=== PATIENT | female | born 1955 | race Caucasian/White ===

== ENCOUNTER → 2017-04-29 | Outpatient (CLI) | payer OTHER | LOC: CIMAGING 15:38 | PROVIDERS: ATTEND Physician Assistant | DX: M54.5 Low back pain (principal); M25.551 Pain in right hip; G89.29 Other chronic pain; M16.12 Unilateral primary osteoarthritis, left hip; M41.9 Scoliosis, unspecified; Z87.81 Personal history of (healed) traumatic fracture; Z96.9 Presence of functional implant, unspecified | CPT/HCPCS: 72100-PO; 72190-PO ==

== ENCOUNTER → 2017-05-16 | Outpatient (CLI) | payer OTHER | LOC: CIMAGING 14:39 | PROVIDERS: ATTEND Internal Medicine | DX: M24.852 Other specific joint derangements of left hip, not elsewhere classified (principal); M85.862 Other specified disorders of bone density and structure, left lower leg | CPT/HCPCS: 72190-PO ==

== ENCOUNTER 2017-05-17 15:50 | Inpatient (IN) | payer OTHER ==
[2017-05-17] MEDS ORDERED: ACETAMINOPHEN 325 MG TAB PO PRN (18:12)
[2017-05-17] MEDS ORDERED: LORazepam 0.5 MG TAB PO PRN (18:12)
[2017-05-17] MEDS ORDERED: HYDROmorphone HCL/NS 0.5 MG/ML SYR IVP PRN (18:12)
[2017-05-17] MEDS ORDERED: ONDANSETRON DISINTEGRATING 4 MG TAB PO PRN (18:12)
[2017-05-17] MEDS ORDERED: oxyCODONE IR 5 MG TAB PO PRN (18:12)
[2017-05-17] MEDS ORDERED: ONDANSETRON 4 MG/2 ML VIAL IVP PRN (18:12)
[2017-05-17] MEDS ORDERED: PROMETHAZINE HCL 25 MG/ML INJ IVP PRN (18:12)
[2017-05-17 20:11] LABS: PLATELET COUNT 206 10^3/uL (150-400)
[2017-05-17] MEDS ORDERED: DIAZEPAM 5 MG TAB PO PRN (21:08)
[2017-05-17] MEDS ORDERED: BACLOFEN 10 MG TAB PO PRN (21:09)
[2017-05-17] MEDS ORDERED: ALPRAZolam 0.25 MG TAB PO PRN (21:09)
[2017-05-17] MEDS: clonazePAM 1 MG TAB PO SCH (22:00)
[2017-05-17] MEDS: GABAPENTIN 300 MG CAP PO SCH (22:00)
[2017-05-18] MEDS: DULoxetine 60 MG CAP PO SCH (07:45)
[2017-05-18] MEDS: PANTOPRAZOLE SODIUM 40 MG TAB PO SCH (07:46)
[2017-05-18] MEDS: GABAPENTIN 300 MG CAP PO SCH ×3 (07:46→21:25)
[2017-05-18] MEDS: CITALOPRAM 20 MG TAB PO SCH (07:47)
[2017-05-18] MEDS: clonazePAM 1 MG TAB PO SCH ×3 (07:47→21:25)
[2017-05-18] MEDS: ENOXAPARIN 40 MG/0.4 ML SYR SC SCH (07:47)
[2017-05-18] MEDS: POLYETHYLENE GLYCOL 3350 17 GM PKT PO SCH (07:51)
[2017-05-18] MEDS: cycloSPORINE 0.05% 30 DROPERETTE/BOX EACHEYE SCH ×2 (07:54→21:26)
[2017-05-18] MEDS: FLUTICASONE NASAL 120 SPRAYS/16 GM MDI EACHNARE SCH ×2 (07:54→21:26)
[2017-05-18] MEDS: DIFLUPREDNATE LEFTEYE SCH ×2 (09:52→21:27)
--- NOTE | 2017-05-18 15:00 | GHP ---
[f rep st] HISTORY AND PHYSICAL DATE OF ADMISSION: 05/17/2017 CHIEF COMPLAINT: Pelvic pain. HISTORY: This is a 61-year-old female with a past medical history of chronic pain, as well as freque nt falls, for which she is followed by Dr. Verma, who presents as a direct admit from Dr. Verma 's office with [id number] pain and difficulty with mobility. The patient describes having an e pisode 2 days prior to admission during which time she was extremely exhausted from lack of sleep and also overexertion and states that she rested her head in her hands against the wall and believes antonio t she, during that time, must have fallen asleep and then fallen down, waking up on her bottom with s ignificant pain in her pelvis. She has been evaluated by Dr. Verma and has undergone x-rays, reve aling that there is no acute fracture. However, the pain remains severe, and she is unable to sit co mfortably or ambulate safely. She notes that she always has chronic underlying pain, including facia l pain and total body pain, which has been exacerbated by the pelvic pain. She notes some pain seems to radiate down her legs, although she states that that has only been happening for the last several minutes after moving into the hospital bed. She does have a chronic indwelling intrathecal Dilaudid pump that she has been using to control her pain, as well as a heating pad. She otherwise denies an y changes in her usual state of health. PAST MEDICAL HISTORY: 1. Chronic pain syndrome with continuous narcotic use and dependency. 2. 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 3. Fibromyalgia. 4. Reported osteoporosis. 5. Scoliosis with severe muscle spasm. 6. Depression and anxiety. 7. Frequent falls. PAST SURGICAL HISTORY: 1. Sinus surgeries as per prior. 2. Eye surgery. 3. Spine surgery. MEDICATIONS: 1. Omeprazole. 2. Fluticasone. 3. Durezol. 4. Cyclosporin eyedrops. 5. MiraLAX. 6. Oxycodone. 7. Boniva. 8. Gabapentin. 9. Fluoxetine. 10. Clonazepam. 11. Citalopram. 12. Baclofen. 13. Xanax. 14. Intrathecal Dilaudid pump. ALLERGIES: Multiple, please see EMR. REVIEW OF SYSTEMS: 10-point review of systems obtained and negative except as per HPI. PHYSICAL EXAMINATION: VITAL SIGNS: BP 125/59, heart rate 59, respiratory rate 16, O2 sats 95% on ro om air, temperature is 36.6. GENERAL APPEARANCE: This is a chronically ill-appearing female. She i s awake and alert, in no acute distress. EYES: Anicteric. HENT: Oropharynx clear. CARDIOVASCULAR : Bradycardic, regular, no MRG. PULMONARY: CTA bilaterally to anterior exam. ABDOMEN: Soft, nont dalton, nondistended. EXTREMITIES: No clubbing, cyanosis, or edema. SKIN: Warm, dry, well perfused . NEURO/PSYCH: The patient is oriented and appropriate. CLINICAL DATA: Pelvic x-ray from yesterday, personally reviewed and interpreted, shows no acute frac ture. There are severe degenerative changes left hip. Labs reviewed, significant for white blood cell count of 4.1, hematocrit of 33.3, which is stable. C hemistries unremarkable. Urinalysis was negative. ASSESSMENT AND PLAN: This is a 61-year-old female with chronic pain, continuous narcotic use and dep endence, who presents status post fall with worsening of her chronic pain. 1. Yentz-tf-rfzmslh pain. Again, the patient had a recent fall where she landed on her tailbone, an d this has led to a pain exacerbation. She does have a significant amount of pain over her tailbone region, though there does not appear to be an acute fracture there. No real red flag signs, although she did note about one minute of radicular-type pain. At this point, plan will be for pain manageme nt. PT, OT to evaluate. Should her pain remain severe or fail to improve as expected, would conside r further imaging with MRI, though at this point this seems necessary. 2. Chronic pain with continuous narcotic use and dependency. Again, she does have an intrathecal pa in Dilaudid pump, which will be continued. This certainly makes her pain control more difficult. In discussion with Dr. Verma, she has been very compliant with her pain regimen and does not have hi story of abusing her pain contract. 3. Anemia. This is mild and stable. No history to suggest acute bleed. 4. Hypoxia. The patient has had intermittent drops in her O2 into the mid to high 80s. She does hicks ve known nocturnal hypoxia, which is untreated. The patient states she cannot tolerate oxygen due to her prior sinus surgeries. At this time, will just monitor, and unless there is a sustained period of hypoxia, will not intervene. 5. Observation status. Suspect the patient will require less than 48-hour stay for evaluation and m anagement of above. 6. The patient is new to my care. Old records reviewed, summarized as per History of Present Illnes s and Past Medical History. Care plan reviewed with Dr. Verma, including plan for treatment of he r pain exacerbation. The patient may require more prolonged hospitalization and even transition to s [facility] nursing facility, though this remains to be seen at this point. /[id number]/MODL
--- NOTE | 2017-05-18 15:07 | HOSPPROG ---
Hospitalist Progress Note Assessment/Plan: #Acute Left hip and sacral pain - hip xray (personally reviewed and interpreted ) severe degenerative changes of the left hip no acute fractures pt reports pain control improved overnight - continue to titrate meds for comfort # Severe chronic LBP - pt s/p pain pump in late - managed by Dr. Verma in oupt setting - will place inpt rehab consult # acute hypoxic respiratory failure- presumed secondary to respiratory depression with extensive pain medications- creatinine normal - wean medications as able - encourage up to chair and incentive spirometry # depression- patient expresses clear depression related to her disability- being treated by Luci in outpatient setting # prophylaxis Lovenox # diet regular # disposition> 2MN as requires IV pain medications ongoing titration for improved control of pain crisis Discussed the case with the RN- we are concerned about the patient's somnolence will work to titrate benzodiazepines and several scheduled medications. Patient 's respiratory mechanics Subjective: Very depressed Objective: Vital Signs Temp Pulse Resp BP Pulse Ox 36.4 C 53 L 16 98/51 L 92 05/18/17 12:00 05/18/17 12:00 05/18/17 12:00 05/18/17 12:00 05/18/17 12:00 Laboratory Results 05/17/17 19:58 05/17/17 19:58 05/17/17 05/18/17 05/19/17 05:59 05:59 05:59 Intake Total 600 Output Total 1600 400 Balance -1600 200 - Physical Exam Constitutional: chronically ill appearing Eyes: anicteric sclera Ears, Nose, Mouth, Throat: dry mucous membranes Cardiovascular: regular rate and rhythym Respiratory: no respiratory distress Gastrointestinal: normoactive bowel sounds Genitourinary: no bladder fullness Skin: warm Musculoskeletal: No asymmetric calves Neurologic: AAOx3 Psychiatric: depressed, flat affect Lymph, Heme, Immunologic: no cervical LAD ICD10 Worksheet Patient Problems: Problems Problem Status Onset Hip arthritis Acute - ICD10 Problem Qualifiers (1) Hip arthritis
[2017-05-18] MEDS ORDERED: oxyCODONE IR 5 MG TAB PO PRN (15:11)
--- NOTE | 2017-05-18 15:34 | PDMN ---
Medical Necessity Medical necessity: C/M review: est. > 2 MN LOS for eval and TX of acute and persistent - left hip and sacral pain, hip xray shows severe degenerative changed of the left hip no acute fractures, hypoxic respiratory failure requiring planned inpatient Rebab eval consult, ongoing IV Ketrolac, IV pain medications, titration for improved of pain crisis, pulse oximetry, acute inpt PT/OT, comorbid severe chronic low back pain, S/P pain pump placement in late 1979', depression per 05/18/2017 Hospitalist progress note.
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
[2017-05-18] MEDS: LIDOCAINE 4%/MENTHOL 1% PATCH TD SCH (18:30)
[2017-05-18] MEDS: KETOROLAC 15 MG/1 ML SDV IVP SCH ×2 (18:32→23:15)
[2017-05-19] MEDS: PATCH REMOVAL 1 EA PATCH TD SCH ×2 (03:21→21:15)
[2017-05-19] MEDS: KETOROLAC 15 MG/1 ML SDV IVP SCH ×3 (04:57→18:47)
[2017-05-19] MEDS: ENOXAPARIN 40 MG/0.4 ML SYR SC SCH (08:44)
[2017-05-19] MEDS: LIDOCAINE 4%/MENTHOL 1% PATCH TD SCH (08:44)
[2017-05-19] MEDS: DULoxetine 60 MG CAP PO SCH (08:45)
[2017-05-19] MEDS: PANTOPRAZOLE SODIUM 40 MG TAB PO SCH (08:45)
[2017-05-19] MEDS: GABAPENTIN 300 MG CAP PO SCH ×3 (08:45→21:14)
[2017-05-19] MEDS: clonazePAM 1 MG TAB PO SCH ×3 (08:45→21:13)
[2017-05-19] MEDS: POLYETHYLENE GLYCOL 3350 17 GM PKT PO SCH (08:45)
[2017-05-19] MEDS: CITALOPRAM 20 MG TAB PO SCH (08:45)
[2017-05-19] MEDS: FLUTICASONE NASAL 120 SPRAYS/16 GM MDI EACHNARE SCH ×2 (09:59→21:14)
[2017-05-19] MEDS: cycloSPORINE 0.05% 30 DROPERETTE/BOX EACHEYE SCH ×2 (09:59→21:13)
[2017-05-19] MEDS: DIFLUPREDNATE LEFTEYE SCH ×2 (10:24→21:13)
--- NOTE | 2017-05-19 11:56 | HOSPPROG ---
Hospitalist Progress Note Assessment/Plan: #Acute Left hip and sacral pain - hip xray (personally reviewed and interpreted ) severe degenerative changes of the left hip no acute fractures pt reports pain control improved overnight - continue to titrate meds for comfort -pt/ot # Severe chronic LBP - pt s/p pain pump in late - managed by Dr. Verma in oupt setting - will place inpt rehab consult # acute hypoxic respiratory failure- presumed secondary to respiratory depression with extensive pain medications- WBC 4 Oxygen saturations 90% on room air-they do fluctuate with her level of sedation - wean medications as able - encourage up to chair and incentive spirometry # depression- patient expresses clear depression related to her disability- being treated by Luci in outpatient setting # prophylaxis Lovenox # diet regular # disposition> 2MN as requires IV pain medications ongoing titration for improved control of pain crisis Discussed the case with the RN- we will not hold patient's home medications unless there is significant hypoxia sedation or respiratory depression Subjective: Tearful that 1 dose of her home Klonopin was held Objective: Vital Signs Temp Pulse Resp BP Pulse Ox 36.9 C 51 L 16 115/58 L 91 L 05/19/17 08:00 05/19/17 08:00 05/19/17 08:00 05/19/17 08:00 05/19/17 08:00 Laboratory Results 05/17/17 19:58 05/17/17 19:58 05/18/17 05/19/17 05/20/17 05:59 05:59 05:59 Intake Total 1050 Output Total 1600 1500 850 Balance -1600 -450 -850 - Physical Exam Constitutional: chronically ill appearing Eyes: anicteric sclera Ears, Nose, Mouth, Throat: moist mucous membranes Cardiovascular: regular rate and rhythym Respiratory: no respiratory distress Gastrointestinal: normoactive bowel sounds Genitourinary: no bladder fullness Skin: warm Musculoskeletal: No asymmetric calves Neurologic: AAOx3 Psychiatric: depressed, flat affect Lymph, Heme, Immunologic: no cervical LAD ICD10 Worksheet Patient Problems: Problems Problem Status Onset Hip arthritis Acute - ICD10 Problem Qualifiers (1) Hip arthritis
[2017-05-20] MEDS: KETOROLAC 15 MG/1 ML SDV IVP SCH ×5 (00:01→23:52)
[2017-05-20] MEDS: clonazePAM 1 MG TAB PO SCH ×5 (05:10→20:16)
[2017-05-20] MEDS: GABAPENTIN 300 MG CAP PO SCH ×3 (09:02→21:39)
[2017-05-20] MEDS: DULoxetine 60 MG CAP PO SCH (09:03)
[2017-05-20] MEDS: ENOXAPARIN 40 MG/0.4 ML SYR SC SCH (09:03)
[2017-05-20] MEDS: CITALOPRAM 20 MG TAB PO SCH (09:03)
[2017-05-20] MEDS: PANTOPRAZOLE SODIUM 40 MG TAB PO SCH (09:04)
[2017-05-20] MEDS: POLYETHYLENE GLYCOL 3350 17 GM PKT PO SCH (09:06)
[2017-05-20] MEDS: LIDOCAINE 4%/MENTHOL 1% PATCH TD SCH (09:08)
[2017-05-20] MEDS: cycloSPORINE 0.05% 30 DROPERETTE/BOX EACHEYE SCH ×2 (09:09→20:16)
[2017-05-20] MEDS: FLUTICASONE NASAL 120 SPRAYS/16 GM MDI EACHNARE SCH ×2 (09:10→20:17)
[2017-05-20] MEDS: DIFLUPREDNATE LEFTEYE SCH ×2 (09:14→20:17)
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
[2017-05-20] MEDS: PATCH REMOVAL 1 EA PATCH TD SCH (20:17)
[2017-05-20] MEDS: [UNRECOGNIZED DRUG - OTHER] PO SCH (21:39)
[2017-05-21] MEDS: KETOROLAC 15 MG/1 ML SDV IVP SCH (04:08)
[2017-05-21 07:42] VITALS: BP 129/83; PULSE 57; RESP 18; TEMP 97.9; O2SAT 91
[2017-05-21] MEDS: clonazePAM 1 MG TAB PO SCH (07:53)
[2017-05-21] MEDS: GABAPENTIN 300 MG CAP PO SCH (07:54)
[2017-05-21] MEDS: CITALOPRAM 20 MG TAB PO SCH (07:54)
[2017-05-21] MEDS: DULoxetine 60 MG CAP PO SCH (07:54)
[2017-05-21] MEDS: PANTOPRAZOLE SODIUM 40 MG TAB PO SCH (07:54)
[2017-05-21] MEDS: FLUTICASONE NASAL 120 SPRAYS/16 GM MDI EACHNARE SCH (08:52)
[2017-05-21] MEDS: cycloSPORINE 0.05% 30 DROPERETTE/BOX EACHEYE SCH (08:52)
[2017-05-21] MEDS: ENOXAPARIN 40 MG/0.4 ML SYR SC SCH (08:52)
[2017-05-21] MEDS: LIDOCAINE 4%/MENTHOL 1% PATCH TD SCH (08:53)
--- NOTE | 2017-05-21 09:04 | PDIAF ---
- Diagnosis Diagnosis: chronic pain Code Status: Full Code - Medication Management Discharge Medications: Medications to Continue on Transfer ALPRAZolam [Xanax 1 MG (*)] 0.25 mg PO TID PRN 05/17/17 [Last Taken 04/26/17] Baclofen [Baclofen 10 mg (*)] 0.5 - 1 tab PO TID PRN 05/17/17 [Last Taken ] Citalopram [CeleXA 20 MG] 20 mg PO DAILY 05/17/17 [Last Taken 05/17/17] DULoxetine [Cymbalta 60 MG (*)] 60 mg PO DAILY 05/17/17 [Last Taken 05/17/17] Difluprednate [Durezol] 1 drop LEFTEYE BID 05/17/17 [Last Taken 05/17/17] Fluticasone Nasal [Flonase Nasal [place]olia] 1 sprays NASAL BID 05/17/17 [Last Taken 05/17/17] Gabapentin [Neurontin 300 MG (*)] 600 mg PO TID 05/17/17 [Last Taken 05/17/17] Herbals/Supplements -Info Only 1 ea PO DAILY 05/17/17 [Last Taken Unknown] Ibandronate Sodium [Boniva] 150 mg PO .QMONTH 05/17/17 [Last Taken 04/17/17] Miralax 17 gm (*) 17 gm PO DAILY 05/17/17 [Last Taken 05/17/17] Omeprazole 20 mg PO TID PRN 05/17/17 [Last Taken 05/17/17 12:00] clonazePAM [klonoPIN (*)] 1 mg PO MOTHFR@,,,05/17/17 [Last Taken ] clonazePAM [klonoPIN (*)] 1 mg PO SUTUWESA@,05/17/17 [Last Taken ] cycloSPORINE 0.05% [Restasis Opht Drops(*)] 1 drop EACHEYE BID 05/17/17 [Last Taken 05/17/17 08:00] oxyCODONE IR [Oxycodone Ir (*)] 5 - 10 mg PO BID PRN 05/17/17 [Last Taken ] Ultimate Mary Grace Probiotic 1 cap PO BID 05/20/17 [Last Taken Unknown] Lidocaine 4%/Menthol 1% [Icy Hot Lidocaine/Menthol 4%/1% Patch (*)] 1 patch TD DAILY patch 05/21/17 [Last Taken Unknown] Discharge Medications: Refer to the Discharge Home Medication list for PRN reason. - Orders Services needed: Registered Nurse, Physical Therapy, Occupational Therapy Diet Recommendation: no restrictions on diet Diet Texture: Regular Texture Diet - Follow Up Care Current Providers and Referrals: Sina Verma MD [Primary Care Provider] -
[2017-05-21] MEDS: DIFLUPREDNATE LEFTEYE SCH (09:13)
[2017-05-21] MEDS: POLYETHYLENE GLYCOL 3350 17 GM PKT PO SCH (09:13)
[2017-05-21] MEDS: [UNRECOGNIZED DRUG - OTHER] PO SCH (09:36)
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
--- NOTE | 2017-05-21 14:33 | GDS ---
[f rep st] DISCHARGE SUMMARY DISCHARGE DIAGNOSES: Include: 1. Severe chronic low back pain. 2. Depression. 3. Fibromyalgia. 4. Osteoporosis. 5. Scoliosis. HISTORY OF PRESENT ILLNESS: A 61-year-old female who presents from clinic with pain crisis. For det ails of the patient's initial presentation, please see the history and physical dated 05/17/2017. CONSULTATIVE SERVICES: None. HOSPITAL COURSE BY ISSUE: 1. Worsening of chronic low back pain and acute worsening of left hip pain. Patient was admitted to the hospital and initiated on her outpatient regimen in addition to some p.r.n. pain medications. S he quickly had control of her pain crisis and was transitioned back to her normal home pain regimen. The patient was felt to be unsafe to return home independently, would benefit from rehabilitation [facility]. She was evaluated by [facility] and excepted the day of disposition. She will transition from [facility] to [facility] for ongoing strengthening and care. 2. Depression. Patient does have significant symptoms of depression. This has been longstanding an d treated by her outpatient provider Dr. Verma. We did continue her outpatient regimen and suspec t this will need to be addressed actively in the outpatient setting as she goes through her rehabilit ation. MEDICATIONS AT THE TIME OF TRANSFER: Please reference the med rec printed on 05/21/2017. FOLLOWUP APPOINTMENTS: Include with [facility] with Dr. Verma, her primary care provider, in the next 1-2 months. PENDING STUDIES: At the time of this dictation are none. TIME SPENT: I spent greater than 30 minutes in the planning and coordination of this discharge. /[id number]/MODL
--- NOTE | 2017-05-24 14:07 | PQFORM ---
PHYSICIAN QUERY FORM Needs Your Response This query form is being sent to you to assure this patient record is coded properly. Please respond to the question below: RECORD CLERK QUESTION: Dear Dr. Flores, in reviewing this patient medical record it is noted the patient had the diagnosis of "acute hypoxic respiratory failure." Patient presented with "hypoxia w/ a drop of the O2 in the mid to high 80's." Noted in the Hospitalist progress notes dated 05/18-05/20 patient held the diagnosis of "acute hypoxic respiratory failure, secondary to respiratory depression w/ extensive pain medication." In the 05/18 Medical Necessity note it is noted patient had the diagnosis of "hypoxic respiratory failure requiring planned inpatient rehab evaluation consult." After study, should the diagnosis of "acute hypoxic respiratory failure, present on admit" be included in the Discharge Summary? ___x__ Yes No Unable to determine Other more appropriate diagnosis Thank you CANDY [facility] HIM/Coding Dept. [phone] INSTRUCTIONS FOR RESPONSE: Answer question by clicking on the "Edit Document" button. Move cursor to area below the stars. When complete, hit "Save." Click on the "Sign" button, then click "Sign" again. Type in your PIN and hit "Enter." MTDD
== END 2017-05-21 13:21 | DRG 553 ==
LOC: INTOOBSV 17:28 → F3N 17:28 → EEVIPCON 22:08 → OBSVTOIN 22:08 → F3N 05-19 22:31
PROVIDERS: ADMIT Internal Medicine; ATTEND Internal Medicine
DX: M16.12 Unilateral primary osteoarthritis, left hip (principal); J96.01 Acute respiratory failure with hypoxia; F11.20 Opioid dependence, uncomplicated; G89.29 Other chronic pain; M53.3 Sacrococcygeal disorders, not elsewhere classified; M54.5 Low back pain; F32.9 Major depressive disorder, single episode, unspecified; M10.9 Gout, unspecified; M79.7 Fibromyalgia; M41.9 Scoliosis, unspecified; R29.6 Repeated falls
CPT/HCPCS: 72190-PO; 97110-GP; 97116-GP; 97161-GP; 97166-GO; 97535-GO; G8978-GP-CJ; G8979-GP-CI; G8987-GO-CJ; G8988-GO-CI; J1650; J1885

== ENCOUNTER 2018-02-10 14:08 | Inpatient (IN) | payer OTHER ==
[2018-02-10] MEDS ORDERED: ONDANSETRON 4 MG/2 ML VIAL IVP ONE (15:05)
--- NOTE | 2018-02-10 15:11 | EDPHY ---
H & P Stated Complaint: fell in tub at noon injuring left chest Time Seen by Provider: 02/10/18 14:57 HPI/ROS: CHIEF COMPLAINT: CHIEF COMPLAINT: Left rib pain HISTORY OF PRESENT ILLNESS: 62-year-old female with scoliosis and chronic pain presents with left rib pain. She slipped and fell in the bathtub at noon today. She landed directly on the edge of the bathtub. She complains of moderate to severe left rib pain. The pain increases with movement and with deep inspiration. She also has left 5th toe pain and bruising. She did not hit her head; no headache or neck pain. She usually takes oxycodone for chronic pain, but ran out of oxycodone 2 days ago. REVIEW OF SYSTEMS: complete 10 point ROS negative except as noted in the HPI - Personal History Current Tetanus/Diphtheria Vaccine: Yes Current Tetanus Diphtheria and Acellular Pertussis (TDAP): Yes - Medical/Surgical History Hx Asthma: No Hx Chronic Respiratory Disease: No Hx Diabetes: No Hx Cardiac Disease: No Hx Renal Disease: No Hx Cirrhosis: No Hx Alcoholism: No Hx HIV/AIDS: No Hx Splenectomy or Spleen Trauma: No Other PMH: SINUSITIS, CRANIAL AND FACIAL NERVE DAMAGE, BROKE LEFT SHOULDER, BROKE PELVIS - Social History Smoking Status: Never smoked Alcohol Use: Sober Drug Use: None Additional Social History: Lives with son in own apartment - Physical Exam Exam: General Appearance: Alert, pleasant Head: Atraumatic Eyes: No conjunctival erythema, PERRLA, EOMI ENT, Mouth: no oral trauma, no bony tenderness Neck: Nontender, full range of motion without pain Respiratory: Left chest wall tenderness laterally and posteriorly, lungs clear bilaterally Cardiovascular: Regular rate and rhythm Abdomen: Abdomen is soft, left lower quadrant tenderness Skin: No lacerations, no abrasions Back: Scoliosis, Midline lower thoracic tenderness Extremities: Pelvis is stable and nontender; no extremity tenderness or deformity, range of motion without pain Neurological: A&Ox3, normal motor function, normal sensory exam, cranial nerves intact Psychiatric: Mood and affect normal Constitutional: Initial Vital Signs Temperature (C) 36.7 C 02/10/18 14:20 Heart Rate 78 02/10/18 14:20 Respiratory Rate 20 02/10/18 14:20 Blood Pressure 98/49 L 02/10/18 14:20 O2 Sat (%) 90 L 02/10/18 14:20 O2 Delivery Mode Room Air O2 (L/minute) 4 Allergies/Adverse Reactions: Cephalosporins Allergy (Severe, Verified 01/12/13 15:55) clindamycin Allergy (Severe, Verified 05/17/17 18:29) methadone [Methadone] Allergy (Severe, Verified 01/12/13 15:55) Anaphylaxis ondansetron HCl [From Zofran] Allergy (Intermediate, Verified 01/12/13 15:55) Rash cephalexin monohydrate [From Keflex] Allergy (Verified 01/12/13 15:55) prochlorperazine edisylate [From Compazine] Allergy (Verified 01/12/13 15:55) prochlorperazine maleate [From Compazine] Allergy (Verified 01/12/13 15:55) Sulfa (Sulfonamide Antibiotics) Allergy (Verified 05/17/17 18:19) IMATICON Allergy (Severe, Uncoded 10/04/12 16:24) cephalexin monohydrate Allergy (Unknown, Uncoded 01/06/18 11:40) ondansetron HCl Allergy (Unknown, Uncoded 01/06/18 11:40) Rash prochlorperazine edisylate Allergy (Unknown, Uncoded 01/06/18 11:40) prochlorperazine maleate Allergy (Unknown, Uncoded 01/06/18 11:40) ANTIEMETICS Allergy (Uncoded 10/04/12 16:25) PHENOTHYAZINES Allergy (Uncoded 10/04/12 16:25) THIAZINE Adverse Reaction (Intermediate, Uncoded 10/04/12 16:25) TRICYCLICS Adverse Reaction (Intermediate, Uncoded 10/04/12 16:25) Hives Home Medications: Medication Instructions Recorded ALPRAZolam [Xanax 1 MG (*)] 0.25 mg PO TID PRN 05/17/17 Baclofen [Baclofen 10 mg (*)] 0.5 - 1 tab PO TID PRN 05/17/17 Citalopram [CeleXA 20 MG] 20 mg PO DAILY 05/17/17 DULoxetine [Cymbalta 60 MG (*)] 60 mg PO DAILY 05/17/17 Difluprednate [Durezol] 1 drop LEFTEYE BID 05/17/17 Fluticasone Nasal [Flonase Nasal 1 sprays NASAL BID 05/17/17 [place]] Gabapentin [Neurontin 300 MG (*)] 600 mg PO TID 05/17/17 Herbals/Supplements -Info Only 1 ea PO DAILY 05/17/17 Ibandronate Sodium [Boniva] 150 mg PO .QMONTH 05/17/17 Miralax 17 gm (*) 17 gm PO DAILY 05/17/17 Omeprazole 20 mg PO TID PRN 05/17/17 clonazePAM [klonoPIN (*)] 1 mg PO MOTHFR@06,,,05/17/17 clonazePAM [klonoPIN (*)] 1 mg PO SUTUWESA@08,,05/17/17 cycloSPORINE 0.05% [Restasis Opht 1 drop EACHEYE BID 05/17/17 Drops(*)] oxyCODONE IR [Oxycodone Ir (*)] 5 - 10 mg PO BID PRN 05/17/17 Ultimate Mary Grace Probiotic 1 cap PO BID 05/20/17 Lidocaine 4%/Menthol 1% [[place] 1 patch TD DAILY patch 05/21/17 Lidocaine/Menthol 4%/1% Patch (*)] Medical Decision Making - Diagnostics Imaging Results: Imaging Impressions Abdomen CT 02/10/18 15:06 Impression: 1. Nothing acute in the abdomen and pelvis. 2. Left-sided rib fractures, with pleural effusion. 3. Significant constipation. Findings and recommendations discussed with Becky Villa M.D., at 16:46 hours, on February 10, 2018. Final report concurs with initial preliminary interpretation. E:amm Chest CT 02/10/18 15:06 Impression: 1. Left-sided rib fracture, some of them moderately displaced, with moderate left pleural effusion. 2. Severe scoliosis, with subsequent decreased left lung volume. Findings and recommendations discussed with Dr. Becky Villa at 4:46 PM, 02/10. Final report concurs with initial preliminary interpretation. Lumbar Spine CT 02/10/18 15:06 Impression: Nothing acute. Findings and recommendations discussed with Dr. Becky Villa at 4:48 PM, 02/10. Final report concurs with initial preliminary interpretation. Thoracic Spine CT 02/10/18 15:06 Impression: No acute thoracic spine compression fracture. Toe X-Ray 02/10/18 15:07 Impression: Negative left fifth toe radiographs. ED Course/Re-evaluation: This patient presents with moderate to severe left rib pain after a fall. She also has exquisite left upper quadrant tenderness and tenderness over her lower thoracic spine. For this reason, CT scan of the chest and abdomen ordered with spinal reconstruction. CT scan reveals multiple rib fractures, left-sided and a small pleural effusion, possibly hemothorax. Results discussed with the patient. Will plan to admit for pain control. The hospitalist service was consulted for admission. Dr. Esther Fonseca was consulted and will see the patient in the hospital. Differential Diagnosis: Differential diagnosis includes though it is not limited to fracture, intracranial hemorrhage, pneumothorax, hemothorax, intra-abdominal hemorrhage. - Data Points Laboratory Results: Laboratory Results 02/10/18 15:10 02/10/18 15:10 02/10/18 02/10/18 02/10/18 15:30 15:10 15:10 WBC 6.59 10^3/uL 10^3/uL (3.80-9.50) RBC 4.19 10^6/uL 10^6/uL (4.18-5.33) Hgb 12.3 g/dL L g/dL (12.6-16.3) POC Hgb 14.3 gm/dL gm/dL (12.6-16.3) Hct 37.8 % L % (38.0-47.0) POC Hct 42 % % (38-47) MCV 90.2 fL fL (81.5-99.8) MCH 29.4 pg pg (27.9-34.1) MCHC 32.5 g/dL g/dL (32.4-36.7) RDW 13.5 % % (11.5-15.2) Plt Count 323 10^3/uL 10^3/uL (150-400) MPV 9.3 fL fL (8.7-11.7) Neut % (Auto) 69.8 % % (39.3-74.2) Lymph % (Auto) 20.5 % % (15.0-45.0) [place] % (Auto) 8.3 % % (4.5-13.0) Eos % (Auto) 0.5 % L % (0.6-7.6) Baso % (Auto) 0.6 % % (0.3-1.7) Nucleat RBC Rel Count 0.0 % % (0.0-0.2) Absolute Neuts (auto) 4.60 10^3/uL 10^3/uL (1.70-6.50) Absolute Lymphs (auto) 1.35 10^3/uL 10^3/uL (1.00-3.00) Absolute Monos (auto) 0.55 10^3/uL 10^3/uL (0.30-0.80) Absolute Eos (auto) 0.03 10^3/uL 10^3/uL (0.03-0.40) Absolute Basos (auto) 0.04 10^3/uL 10^3/uL (0.02-0.10) Absolute Nucleated RBC 0.00 10^3/uL 10^3/uL (0-0.01) Immature Gran % 0.3 % % (0.0-1.1) Immature Gran # 0.02 10^3/uL 10^3/uL (0.00-0.10) POC Sodium 139 mEq/L mEq/L (135-145) Sodium 139 mEq/L mEq/L (135-145) POC Potassium 4.0 mEq/L mEq/L (3.3-5.0) Potassium 4.4 mEq/L mEq/L (3.5-5.2) POC Chloride 97 mEq/L mEq/L (97-110) Chloride 98 mEq/L mEq/L (97-110) Carbon Dioxide 30 mEq/l mEq/l (22-31) Anion Gap 11 mEq/L mEq/L (6-14) POC BUN 7 mg/dL mg/dL (7-23) BUN 9 mg/dL mg/dL (7-23) Creatinine 0.7 mg/dL mg/dL (0.6-1.0) POC Creatinine 0.7 mg/dL mg/dL (0.6-1.0) Estimated GFR > 60 Glucose 74 mg/dL mg/dL (70-100) POC Glucose 71 mg/dL mg/dL (70-100) Calcium 9.5 mg/dL mg/dL (8.5-10.4) Medications Given: Discontinued Medications Morphine Sulfate (Morphine) 4 mg IVP EDNOW ONE Stop: 02/10/18 15:06 Last Admin: 02/10/18 15:23 Dose: 4 mg Ondansetron HCl (Zofran) 4 mg IVP EDNOW ONE Stop: 02/10/18 15:06 Last Admin: 02/10/18 15:23 Dose: 4 mg Point of Care Test Results: Chemistry 02/10/18 15:30 POC Sodium 139 mEq/L mEq/L (135-145) POC Potassium 4.0 mEq/L mEq/L (3.3-5.0) POC Chloride 97 mEq/L mEq/L (97-110) POC BUN 7 mg/dL mg/dL (7-23) POC Creatinine 0.7 mg/dL mg/dL (0.6-1.0) POC Glucose 71 mg/dL mg/dL (70-100) ISTAT H&H 02/10/18 15:30 POC Hgb 14.3 gm/dL gm/dL (12.6-16.3) POC Hct 42 % % (38-47) Departure - Departure Disposition: [facility] Acute Clinical Impression: Multiple rib fractures Qualifiers: Encounter type: initial encounter Fracture type: closed Laterality: left Qualified Code(s): S22.42XA - Multiple fractures of ribs, left side, initial encounter for closed fracture Condition: Fair Referrals: NONE *PRIMARY CARE P,. [Primary Care Provider] - As per Instructions
[2018-02-10 15:25] LABS: PLATELET COUNT 323 10^3/uL (150-400)
[2018-02-10] MEDS ORDERED: IOPAMIDOL (ISOVUE-300) 100 ML BTL ONE (15:52)
[2018-02-10] MEDS ORDERED: ACETAMINOPHEN 325 MG TAB PO PRN (17:51)
[2018-02-10] MEDS ORDERED: ONDANSETRON 4 MG/2 ML VIAL IVP PRN (17:51)
[2018-02-10] MEDS ORDERED: HYDROmorphONE/DILAUDID 1 MG/ML INJ IVP PRN (17:51)
[2018-02-10] MEDS ORDERED: ONDANSETRON DISINTEGRATING 4 MG TAB PO PRN (17:51)
[2018-02-10] MEDS ORDERED: HYDROCODONE/APAP 5/325 TAB PO PRN (17:51)
--- NOTE | 2018-02-10 19:49 | PDGENHP ---
History and Physical - Chief Complaint L sided rib pain - History of Present Illness Sulema Hannon is a 62 yo F with a PMHx of Chronic LBP, scoliosis, depression, fibromyalgia who presents to [facility] for L rib pain. She reports that she slipped while using the bathtub today around noon and landed on the side of her bathtub on her L side. She reports acute onset of severe L sided rib pain after the fall. Pain is described as sharp, increases with movement and deep breaths. She also reports L 5th toe pain with associated bruising. She denies any head or neck trauma, or headache or neck pain. History Information - Allergies/Home Medication List Allergies/Adverse Reactions: Cephalosporins Allergy (Severe, Verified 01/12/13 15:55) clindamycin Allergy (Severe, Verified 05/17/17 18:29) methadone [Methadone] Allergy (Severe, Verified 01/12/13 15:55) Anaphylaxis ondansetron HCl [From Zofran] Allergy (Intermediate, Verified 01/12/13 15:55) Rash cephalexin monohydrate [From Keflex] Allergy (Verified 01/12/13 15:55) prochlorperazine edisylate [From Compazine] Allergy (Verified 01/12/13 15:55) prochlorperazine maleate [From Compazine] Allergy (Verified 01/12/13 15:55) Sulfa (Sulfonamide Antibiotics) Allergy (Verified 05/17/17 18:19) IMATICON Allergy (Severe, Uncoded 10/04/12 16:24) cephalexin monohydrate Allergy (Unknown, Uncoded 01/06/18 11:40) ondansetron HCl Allergy (Unknown, Uncoded 01/06/18 11:40) Rash prochlorperazine edisylate Allergy (Unknown, Uncoded 01/06/18 11:40) prochlorperazine maleate Allergy (Unknown, Uncoded 01/06/18 11:40) ANTIEMETICS Allergy (Uncoded 10/04/12 16:25) PHENOTHYAZINES Allergy (Uncoded 10/04/12 16:25) THIAZINE Adverse Reaction (Intermediate, Uncoded 10/04/12 16:25) TRICYCLICS Adverse Reaction (Intermediate, Uncoded 10/04/12 16:25) Hives Home Medications: ALPRAZolam [Xanax 1 MG (*)] 0.25 mg PO TID PRN 05/17/17 [Last Taken 04/26/17] Baclofen [Baclofen 10 mg (*)] 0.5 - 1 tab PO TID PRN 05/17/17 [Last Taken ] Citalopram [CeleXA 20 MG] 20 mg PO DAILY 05/17/17 [Last Taken 05/17/17] DULoxetine [Cymbalta 60 MG (*)] 60 mg PO DAILY 05/17/17 [Last Taken 05/17/17] Difluprednate [Durezol] 1 drop LEFTEYE BID 05/17/17 [Last Taken 05/17/17] Fluticasone Nasal [Flonase Nasal [place]] 1 sprays NASAL BID 05/17/17 [Last Taken 05/17/17] Gabapentin [Neurontin 300 MG (*)] 600 mg PO TID 05/17/17 [Last Taken 05/17/17] Herbals/Supplements -Info Only 1 ea PO DAILY 05/17/17 [Last Taken Unknown] Ibandronate Sodium [Boniva] 150 mg PO .QMONTH 05/17/17 [Last Taken 04/17/17] Miralax 17 gm (*) 17 gm PO DAILY 05/17/17 [Last Taken 05/17/17] Omeprazole 20 mg PO TID PRN 05/17/17 [Last Taken 05/17/17 12:00] clonazePAM [klonoPIN (*)] 1 mg PO MOTHFR@,,,05/17/17 [Last Taken ] clonazePAM [klonoPIN (*)] 1 mg PO SUTUWESA@,,05/17/17 [Last Taken ] cycloSPORINE 0.05% [Restasis Opht Drops(*)] 1 drop EACHEYE BID 05/17/17 [Last Taken 05/17/17 08:00] oxyCODONE IR [Oxycodone Ir (*)] 5 - 10 mg PO BID PRN 05/17/17 [Last Taken ] Ultimate Mary Grace Probiotic 1 cap PO BID 05/20/17 [Last Taken Unknown] I have personally reviewed and updated: family history, medical history, social history, surgical history - Past Medical History fibromyalgia, psychiatric history Additional medical history: chronic LBP, scoliosis - Surgical History Additional surgical history: RUL lobectomy - Family History Positive for: non-pertinent - Social History Smoking Status: Never smoked Alcohol Use: Sober Drug Use: None Review of Systems Review of Systems: ROS: 10pt was reviewed & negative except for what was stated in HPI & below Physical Exam Physical Exam: Temp Pulse Resp BP Pulse Ox 36.4 C 63 16 110/60 85 L 02/10/18 18:49 02/10/18 18:49 02/10/18 18:49 02/10/18 18:49 02/10/18 18:49 O2 (L/minute) 2 Constitutional: no apparent distress Eyes: PERRL Ears, Nose, Mouth, Throat: moist mucous membranes Cardiovascular: regular rate and rhythym Respiratory: inspiratory crackles Skin: warm Neurologic: AAOx3 Psychiatric: interacting appropriately Lab Data & Imaging Review 02/10/18 15:10 02/10/18 15:10 WBC 6.59 10^3/uL (3.80-9.50) 02/10/18 15:10 RBC 4.19 10^6/uL (4.18-5.33) 02/10/18 15:10 Hgb 12.3 g/dL (12.6-16.3) L 02/10/18 15:10 POC Hgb 14.3 gm/dL (12.6-16.3) 02/10/18 15:30 Hct 37.8 % (38.0-47.0) L 02/10/18 15:10 POC Hct 42 % (38-47) 02/10/18 15:30 MCV 90.2 fL (81.5-99.8) 02/10/18 15:10 MCH 29.4 pg (27.9-34.1) 02/10/18 15:10 MCHC 32.5 g/dL (32.4-36.7) 02/10/18 15:10 RDW 13.5 % (11.5-15.2) 02/10/18 15:10 Plt Count 323 10^3/uL (150-400) 02/10/18 15:10 MPV 9.3 fL (8.7-11.7) 02/10/18 15:10 Neut % (Auto) 69.8 % (39.3-74.2) 02/10/18 15:10 Lymph % (Auto) 20.5 % (15.0-45.0) 02/10/18 15:10 [place] % (Auto) 8.3 % (4.5-13.0) 02/10/18 15:10 Eos % (Auto) 0.5 % (0.6-7.6) L 02/10/18 15:10 Baso % (Auto) 0.6 % (0.3-1.7) 02/10/18 15:10 Nucleat RBC Rel Count 0.0 % (0.0-0.2) 02/10/18 15:10 Absolute Neuts (auto) 4.60 10^3/uL (1.70-6.50) 02/10/18 15:10 Absolute Lymphs (auto) 1.35 10^3/uL (1.00-3.00) 02/10/18 15:10 Absolute Monos (auto) 0.55 10^3/uL (0.30-0.80) 02/10/18 15:10 Absolute Eos (auto) 0.03 10^3/uL (0.03-0.40) 02/10/18 15:10 Absolute Basos (auto) 0.04 10^3/uL (0.02-0.10) 02/10/18 15:10 Absolute Nucleated RBC 0.00 10^3/uL (0-0.01) 02/10/18 15:10 Immature Gran % 0.3 % (0.0-1.1) 02/10/18 15:10 Immature Gran # 0.02 10^3/uL (0.00-0.10) 02/10/18 15:10 POC Sodium 139 mEq/L (135-145) 02/10/18 15:30 Sodium 139 mEq/L (135-145) 02/10/18 15:10 POC Potassium 4.0 mEq/L (3.3-5.0) 02/10/18 15:30 Potassium 4.4 mEq/L (3.5-5.2) 02/10/18 15:10 POC Chloride 97 mEq/L (97-110) 02/10/18 15:30 Chloride 98 mEq/L (97-110) 02/10/18 15:10 Carbon Dioxide 30 mEq/l (22-31) 02/10/18 15:10 Anion Gap 11 mEq/L (6-14) 02/10/18 15:10 POC BUN 7 mg/dL (7-23) 02/10/18 15:30 BUN 9 mg/dL (7-23) 02/10/18 15:10 Creatinine 0.7 mg/dL (0.6-1.0) 02/10/18 15:10 POC Creatinine 0.7 mg/dL (0.6-1.0) 02/10/18 15:30 Estimated GFR > 60 02/10/18 15:10 Glucose 74 mg/dL (70-100) 02/10/18 15:10 POC Glucose 71 mg/dL (70-100) 02/10/18 15:30 Calcium 9.5 mg/dL (8.5-10.4) 02/10/18 15:10 Assessment & Plan Assessment: Multiple rib fractures (Acute) - S/p Mechanical fall in bathtub - CT Chest shows 4 L sided rib fractures, T8-11, 9 and 11 moderately displaced - Patient saturating well on NC, wean as tolerated - Pain control PRN - PT/OT ordered L Sided Pleural Effusion - In setting of rib fractures, concern for hemothorax - General surgery consulted by ED for further evaluation - H/H stable on admission, continue to monitor Mechanical Fall - Rib fractures as above, CT Lumbar/Thoracic spine negative for acute injuries - L 5th toe also negative for fracture - PT/OT Depression - Continue home medications when med rec completed Chronic LBP - Continue home medications when med rec completed FEN: Regular DVT PPx: Lovenox Code: FULL Dispo: Admit to Medicine
[2018-02-10] MEDS ORDERED: Ibandronate Sodium [Boniva] 150 MG PO SCH (21:15)
[2018-02-10] MEDS ORDERED: ALPRAZolam 0.25 MG TAB PO PRN (21:30)
[2018-02-10] MEDS: PANTOPRAZOLE SODIUM 40 MG TAB PO SCH (22:23)
[2018-02-10] MEDS: GABAPENTIN 300 MG CAP PO SCH (22:23)
[2018-02-10] MEDS: clonazePAM 1 MG TAB PO SCH (22:23)
[2018-02-11] MEDS: oxyCODONE IR 5 MG TAB PO PRN ×3 (02:28→15:26)
[2018-02-11 04:59] LABS: PLATELET COUNT 262 10^3/uL (150-400)
--- NOTE | 2018-02-11 07:50 | GCON ---
DATE OF CONSULTATION: 02/10/2018 The patient is a 62-year-old female, who is a chronic pain patient because of facial nerve injuries a nd severe scoliosis, who fell and was brought to the hospital complaining of left rib pain. CT scan shows 4 mildly displaced posterior left rib fractures with a small hemothorax. No pneumothorax. She also complained about some pain in her left 5th toe, but the x-ray was negative. She is admitted to the hospitalist service at this time for medical evaluation, and we will follow her for her rib frac tures. If her hemothorax increases, she may need drainage. ALLERGIES: Include cephalosporin, clindamycin, cephalexin, sulfa, Compazine, Zofran, methadone, tric yclics, thiazine, phenothiazines. PRESENT MEDICATIONS: Xanax, baclofen, Oxy-IR, Restasis, Klonopin, omeprazole, Celexa, Cymbalta, Dure zol, Flonase, Neurontin, and Boniva. PAST MEDICAL HISTORY: Includes chronic pain syndrome with fibromyalgia. She has chronic low blood p ressure and severe scoliosis. PAST SURGICAL HISTORY: She has had a right upper lobectomy. FAMILY HISTORY: Noncontributory. REVIEW OF SYSTEMS: Negative on a full 10-point review, except as related to the HPI. SOCIAL HISTORY: She does not smoke and does not drink. PHYSICAL EXAMINATION: A comfortable, alert, 62-year-old female, who appears much older, in no acute distress, afebrile. HEENT: Nonicteric. She has some left eye conjunctival redness. Both pupils ar e equal. There are no oral lesions. No adenopathy. Neck is supple, nontender. Chest reveals symme trical clear breath sounds which are somewhat altered by her scoliosis. Cardiac exam reveals a regul ar rhythm without murmurs. Abdomen is soft and nontender, without signs of trauma. Pelvis is intact externally with no pain. Extremities reveal full pulses. She has some tenderness in her left 5th t oe, but no obvious fracture or deformity. Skin is intact with no lesions or rashes. Psych exam reve als her to be alert, cooperative, and oriented. IMPRESSION: 1. Multiple left rib fractures with hemothorax. 2. Chronic pain syndrome. 3. Severe scoliosis. PLAN: We will follow her in the hospital for good pulmonary care. If her hemothorax increases, she may need IR drainage or chest tube drainage. /[id number]/MODL
[2018-02-11] MEDS: clonazePAM 1 MG TAB PO SCH ×3 (08:39→21:09)
--- NOTE | 2018-02-11 09:03 | TRAUMAPN ---
<Tere Silvestre - Last Filed: 02/11/18 09:04> Trauma Progress Note Assessment/Plan: 62yo F s/p mechanical fall with L 8-11 rib fractures and pleural effusion/ hemothorax. Complicated by severe scoliosis and chronic pain. No PTX on CXR this am No new complaints or pains on tertiary survey S: O: Objective: Vital Signs Temp Pulse Resp BP Pulse Ox 36.9 C 48 L 16 82/41 L 97 02/11/18 08:00 02/11/18 08:00 02/11/18 08:00 02/11/18 08:00 02/11/18 08:00 Laboratory Results 02/11/18 04:45 02/10/18 02/11/18 02/12/18 05:59 05:59 05:59 Intake Total 550 Balance 550 <Lora Gonzales - Last Filed: 02/11/18 14:05> Trauma Progress Note Assessment/Plan: Explained that will need aggressive pulmonary toilet to avoid pneumonia and other complications S: Lying in bed, asleep but easily arousable. Objective: Vital Signs Temp Pulse Resp BP Pulse Ox 36.9 C 69 16 98/65 L 97 02/11/18 11:54 02/11/18 11:54 02/11/18 11:54 02/11/18 11:54 02/11/18 11:54 Laboratory Results 02/11/18 04:45 02/10/18 02/11/18 02/12/18 05:59 05:59 05:59 Intake Total 550 Balance 550 Physical Exam - Physical Exam General Appearance: alert, no apparent distress, other (thin, curled on left side) EENT: PERRL/EOMI, normal ENT inspection, No scleral icterus (R), No scleral icterus (L), No hearing deficit Neck: non-tender, full range of motion Respiratory: lungs clear, normal breath sounds, other (good effort when prompted , otherwise shallow) Cardiac/Chest: regular rate, rhythm, No edema Abdomen: normal bowel sounds, non-tender, soft Back: Other Skin: normal color, warm/dry, other (No ecchymosis)
[2018-02-11] MEDS: GABAPENTIN 300 MG CAP PO SCH ×3 (10:10→21:09)
[2018-02-11] MEDS: CITALOPRAM 20 MG TAB PO SCH (10:12)
[2018-02-11] MEDS: DULoxetine 60 MG CAP PO SCH (10:12)
[2018-02-11] MEDS: PANTOPRAZOLE SODIUM 40 MG TAB PO SCH ×2 (10:12→21:08)
[2018-02-11] MEDS: ENOXAPARIN 40 MG/0.4 ML SYR SC SCH (10:13)
[2018-02-11] MEDS: Difluprednate [Durezol] 1 DROP LEFTEYE SCH ×2 (10:13→21:08)
[2018-02-11] MEDS: POLYETHYLENE GLYCOL 3350 17 GM PKT PO SCH (10:14)
[2018-02-11] MEDS: cycloSPORINE 0.05% 30 DROPERETTE/BOX EACHEYE SCH ×2 (12:11→21:08)
--- NOTE | 2018-02-11 14:25 | HOSPPROG ---
Hospitalist Progress Note Assessment/Plan: Sulema Hannon is a 62 y/o female w chronic low back pain, scoliosis, depression and fibromyalgia who slipped while getting out of the tub. She was c/o severe left sided rib pain and left 5th toe pain. Today is my first encounter, chart reviewed. *multiple rib fx, hemothorax, pleural effusion -appreciate trauma seeing her - CT Chest shows 4 L sided rib fractures, T8-11, 9 and 11 moderately displaced - PT/OT ordered - needs good pulmonary rehab * L Sided Pleural Effusion, hemothorax per surgery -continued close watching * Mechanical Fall - Rib fractures as above, CT Lumbar/Thoracic spine negative for acute injuries - L 5th toe also negative for fracture - PT/OT *underweight w a BMI of 17.8 *anemia -monitor closely *Depression - Continue home medications * Chronic LBP - Continue home medications - she has an implanted pain pump, she gets 4127 mcg of hydromorphone *Plan: reviewed ST notes, recommendation is a SNF. She will require another midnight stay, she is requiring oxygen, increase difficulty w ambulation. Will not be able to care for herself at home. Subjective: Sulema said she is feeling poorly, very weak. Objective: Vital Signs Temp Pulse Resp BP Pulse Ox 36.9 C 69 16 98/65 L 97 02/11/18 11:54 02/11/18 11:54 02/11/18 11:54 02/11/18 11:54 02/11/18 11:54 Laboratory Results 02/11/18 04:45 02/10/18 02/11/18 02/12/18 05:59 05:59 05:59 Intake Total 550 Balance 550 - Physical Exam Constitutional: chronically ill appearing, uncomfortable, other (thin) Eyes: PERRL Ears, Nose, Mouth, Throat: hearing normal Cardiovascular: regular rate and rhythym Respiratory: no respiratory distress, reduced air movement (left mid lobe down) Skin: warm, other (small skin tear to her right elbow) Musculoskeletal: generalized weakness Neurologic: AAOx3 Psychiatric: interacting appropriately ICD10 Worksheet Patient Problems: Problems Problem Status Onset Hip arthritis Acute Multiple rib fractures Acute
[2018-02-11] MEDS ORDERED: HYDROMORPHONE MISC SCH (15:00)
--- NOTE | 2018-02-11 16:11 | ASMTCMCOM ---
CM Note CM Note Notes: Pt is a 62 y/o female admitted for left sided rib pain. Inpatient rehab has signed off on pt. OT and SPL are both recommending SNF. CM met w/ pt for dispo planning. Pt is agreeable w/ going to SNF. Pt reports that she has been to SNF once and it was to [facility]. Pt would like a referral sent there. Pt reports that she is moving into a new living situation on . Pt reports that she needs to get the deposit to the landlord by then. Pt reports that she can ask her two friends or have her son do it for her. Pt reports that she has her check book to be able to write the check. CM to follow. Plan: SNF Date Signed: 02/11/2018 04:10 PM Electronically Signed By:VIKY Marcus
[2018-02-11] MEDS: ACETAMINOPHEN 500 MG TAB PO SCH ×2 (16:40→21:09)
[2018-02-11] MEDS: LIDOCAINE 4%/MENTHOL 1% PATCH TD SCH (16:42)
--- NOTE | 2018-02-11 16:56 | ASMTCMCOM ---
CM Note CM Note Notes: CM spoke to pts future apartment complex per her request. CM spoke to Xu (P#: [phone] then press option 2). Xu reports that she does not feel comfortable w/ pt signing her lease because it sounded like she was very sedated on the phone. CM went over w/ pt that her MDPKATERIN (son and friend) cannot sign the lease. CM explained to pt that they are only allowed to make medical decisions if she is not decisional. CM spoke to Ruthy Mensah NP about this. Ruthy is agreeable to writing a [facility]. Pt was decisional today. CM to follow. Date Signed: 02/11/2018 04:55 PM Electronically Signed By:VIKY Marcus
--- NOTE | 2018-02-11 18:05 | PDMN ---
Medical Necessity Medical necessity: Pt meets IP criteria as of 02/11/2018 per and MCG M-540 ( pleural effusion); los > 2 mn for ongoing tx and management of hemothorax and multiple rib fx s/p mechanical fall; requiring PT/OT, pulmonary rehab, trauma consultation, and pain control.
[2018-02-11] MEDS: BISACODYL 5 MG EC TAB PO PRN (21:09)
[2018-02-11] MEDS: PATCH REMOVAL 1 EA PATCH TD SCH (21:09)
[2018-02-12] MEDS: oxyCODONE IR 5 MG TAB PO PRN (05:48)
[2018-02-12] MEDS: ACETAMINOPHEN 500 MG TAB PO SCH ×3 (05:49→21:28)
--- NOTE | 2018-02-12 08:59 | HOSPPROG ---
Hospitalist Progress Note Assessment/Plan: Sulema Hannon is a 62 y/o female w chronic low back pain, scoliosis, depression and fibromyalgia who slipped while getting out of the tub. She was c/o severe left sided rib pain and left 5th toe pain. *multiple rib fx, hemothorax, pleural effusion -appreciate trauma seeing her - CT Chest shows 4 L sided rib fractures, T8-11, 9 and 11 moderately displaced - PT/OT ordered - needs good pulmonary rehab - reviewed chest x ray today, no sig change - Lidoderm patch is helpful * L Sided Pleural Effusion, hemothorax per surgery -continued close watching * Mechanical Fall - Rib fractures as above, CT Lumbar/Thoracic spine negative for acute injuries - L 5th toe also negative for fracture - PT/OT *underweight w a BMI of 17.8 *anemia -monitor closely *Depression - Continue home medications * Chronic LBP - Continue home medications - she has an implanted pain pump, she gets 4127 mcg of hydromorphone *Plan: will need a rehab facility. Subjective: Sulema says pain is well managed, has trouble taking in deep breaths. Objective: Vital Signs Temp Pulse Resp BP Pulse Ox 36.6 C 52 L 12 99/51 L 100 02/12/18 03:21 02/12/18 03:21 02/12/18 03:21 02/12/18 03:21 02/12/18 03:21 Laboratory Results 02/12/18 05:27 02/11/18 02/12/18 02/13/18 05:59 05:59 05:59 Intake Total 100 Output Total 100 Balance 0 - Physical Exam Constitutional: chronically ill appearing, other (thin) Eyes: PERRL Ears, Nose, Mouth, Throat: hearing normal Cardiovascular: regular rate and rhythym Respiratory: no respiratory distress, reduced air movement (left mid lobe down, diminished at the right base) Skin: warm Musculoskeletal: generalized weakness Neurologic: AAOx3 Psychiatric: interacting appropriately ICD10 Worksheet Patient Problems: Problems Problem Status Onset Chronic pain Acute Fall in bathtub Acute Fibromyalgia affecting multiple sites Acute Multiple rib fractures Acute Hip arthritis Acute
[2018-02-12] MEDS: CITALOPRAM 20 MG TAB PO SCH (09:44)
[2018-02-12] MEDS: clonazePAM 1 MG TAB PO SCH ×3 (09:44→21:29)
[2018-02-12] MEDS: PANTOPRAZOLE SODIUM 40 MG TAB PO SCH ×2 (09:44→21:29)
[2018-02-12] MEDS: ENOXAPARIN 40 MG/0.4 ML SYR SC SCH (09:44)
[2018-02-12] MEDS: GABAPENTIN 300 MG CAP PO SCH ×3 (09:44→21:28)
[2018-02-12] MEDS: LIDOCAINE 4%/MENTHOL 1% PATCH TD SCH (09:45)
[2018-02-12] MEDS: cycloSPORINE 0.05% 30 DROPERETTE/BOX EACHEYE SCH ×2 (09:45→21:28)
[2018-02-12] MEDS: POLYETHYLENE GLYCOL 3350 17 GM PKT PO SCH (09:46)
[2018-02-12] MEDS: Difluprednate [Durezol] 1 DROP LEFTEYE SCH ×2 (09:54→21:24)
[2018-02-12] MEDS: DULoxetine 60 MG CAP PO SCH (09:54)
[2018-02-12] MEDS: IPRATROPIUM/ALBUTEROL 3 ML DEYVIAL IH SCH ×2 (11:41→17:22)
--- NOTE | 2018-02-12 12:12 | TRAUMAPN ---
Trauma Progress Note - Problem/Surgery Performed (1) Chronic pain Assessment/Plan: long standing problem starting with facial n. injury Qualifiers: Chronic pain type: chronic pain syndrome Qualified Code(s): G89.4 - Chronic pain syndrome (3) Fall in bathtub Assessment/Plan: mechanism of injury/ she was [facility] her [facility] and plans on moving to a single level apartment as soon as she is able she appears quite frail and weak Inpatient rehab consult requested Qualifiers: Encounter type: initial encounter Qualified Code(s): W18.2XXA - Fall in ( into) shower or empty bathtub, initial encounter (4) Multiple rib fractures Assessment/Plan: stable findings on chest x-ray, patient reports that she had not had lung surgery as recorded in her history, but she did have right shoulder surgery she is a lifelong non-smoker and has had chronic mild hypoxemia for several years. Her O2 sats at home vary from 83-90 % and she does not use oxygen at home. Qualifiers: Encounter type: initial encounter Fracture type: closed Laterality: left Qualified Code(s): S22.42XA - Multiple fractures of ribs, left side, initial encounter for closed fracture Subjective: sitting up in a reclining chair, report good pain control feeling very weak Objective: Vital Signs Temp Pulse Resp BP Pulse Ox 37.0 C 75 15 92/54 L 83 L 02/12/18 11:27 02/12/18 11:44 02/12/18 11:44 02/12/18 11:27 02/12/18 11:44 Laboratory Results 02/12/18 05:27 02/11/18 02/12/18 02/13/18 05:59 05:59 05:59 Intake Total 100 Output Total 100 Balance 0 - C-Spine Clearance Cervical Spine Cleared: Yes Physical Exam - Physical Exam General Appearance: no apparent distress Neck: full range of motion, supple Respiratory: lungs clear, decreased breath sounds Cardiac/Chest: regular rate, rhythm Abdomen: non-tender, soft Pelvic Exam: deferred Rectal: deferred Back: Normal inspection Skin: warm/dry Neuro/Psych: normal mood/affect
[2018-02-12] MEDS: PATCH REMOVAL 1 EA PATCH TD SCH (21:29)
[2018-02-12] MEDS: BISACODYL 5 MG EC TAB PO PRN (21:29)
[2018-02-13] MEDS: clonazePAM 1 MG TAB PO SCH ×3 (06:02→21:45)
[2018-02-13] MEDS: ACETAMINOPHEN 500 MG TAB PO SCH ×3 (06:02→21:45)
[2018-02-13] MEDS: POLYETHYLENE GLYCOL 3350 17 GM PKT PO SCH (08:21)
[2018-02-13] MEDS: LIDOCAINE 4%/MENTHOL 1% PATCH TD SCH (08:21)
[2018-02-13] MEDS: cycloSPORINE 0.05% 30 DROPERETTE/BOX EACHEYE SCH ×2 (08:22→21:45)
[2018-02-13] MEDS: PANTOPRAZOLE SODIUM 40 MG TAB PO SCH ×2 (08:23→21:45)
[2018-02-13] MEDS: Difluprednate [Durezol] 1 DROP LEFTEYE SCH ×2 (08:23→21:46)
[2018-02-13] MEDS: ENOXAPARIN 40 MG/0.4 ML SYR SC SCH (08:23)
[2018-02-13] MEDS: GABAPENTIN 300 MG CAP PO SCH ×3 (08:23→21:45)
[2018-02-13] MEDS: CITALOPRAM 20 MG TAB PO SCH (08:23)
[2018-02-13] MEDS: DULoxetine 60 MG CAP PO SCH (08:23)
--- NOTE | 2018-02-13 09:09 | HOSPPROG ---
Hospitalist Progress Note Assessment/Plan: Sulema Hannon is a 62 y/o female w chronic low back pain, scoliosis, depression and fibromyalgia who slipped while getting out of the tub. She was c/o severe left sided rib pain and left 5th toe pain. *multiple rib fx, hemothorax, pleural effusion -appreciate trauma seeing her - CT Chest shows 4 L sided rib fractures, T8-11, 9 and 11 moderately displaced - Lidoderm patch is helpful * L Sided Pleural Effusion, hemothorax per surgery -concerned this is enlarging (she is asymptomatic) -will discuss w trauma services * Mechanical Fall - Rib fractures as above, CT Lumbar/Thoracic spine negative for acute injuries - L 5th toe also negative for fracture - PT/OT *underweight w a BMI of 17.8 *anemia -monitor closely *Depression - Continue home medications *bradycardia -asymptomatic * Chronic LBP - she has an implanted pain pump, she gets 4127 mcg of hydromorphone *Plan: will need a rehab facility. Subjective: Sulema has some left sided rib pain. Objective: Vital Signs Temp Pulse Resp BP Pulse Ox 36.9 C 48 L 12 89/42 L 93 02/13/18 08:00 02/13/18 08:00 02/13/18 08:00 02/13/18 08:00 02/13/18 08:00 Laboratory Results 02/12/18 05:27 02/12/18 02/13/18 02/14/18 05:59 05:59 05:59 Intake Total 100 400 Output Total 100 300 Balance 0 100 - Physical Exam Constitutional: chronically ill appearing, other (thin) Eyes: PERRL Ears, Nose, Mouth, Throat: hearing normal Cardiovascular: regular rate and rhythym Respiratory: no respiratory distress, reduced air movement, aegophony (over left base) Skin: warm Musculoskeletal: generalized weakness, other (scoliosis and kyphosis) Neurologic: AAOx3 Psychiatric: interacting appropriately ICD10 Worksheet Patient Problems: Problems Problem Status Onset Chronic pain Acute Fall in bathtub Acute Fibromyalgia affecting multiple sites Acute Multiple rib fractures Acute Hip arthritis Acute
--- NOTE | 2018-02-13 10:45 | ASMTCMCOM ---
CM Note CM Note Notes: Spoke w/pt and son re; notarized letter for apartment lease. Since pt has been hospitalized, she has been unable to sign the lease and does not want to lose the apt. CM spoke with our Notary Kristen Farfan, who states all pt needs to do is write a letter stating that she gives permission for her son to sign the lease and she will notarize. CM also gave pt letter signed by hospitalist that pt is decisional. Dc date uncertain, Raina at [facility] notified. DC Plan: [facility] Date Signed: 02/13/2018 10:44 AM Electronically Signed By:Christi Lala RN
--- NOTE | 2018-02-13 17:23 | TRAUMAPN ---
Trauma Progress Note Assessment/Plan: 62 year old s/p fall 3 weeks ago onto walker requiring sitting in recliner for 10 days and now s/p fall on left side with multiple rib fx has pleural effusion continue pulmonary toilet recheck cxr tomorrow - if worsening, it is ever so slightly Spent time discussing her hiatal hernia which she did not know that she had Will discuss with Dr. Garcia as she is requiring multiple antacids S: Today not as goot as yesterday afternoon but not specific Objective: Vital Signs Temp Pulse Resp BP Pulse Ox 36.6 C 48 L 12 103/50 L 93 02/13/18 16:00 02/13/18 16:00 02/13/18 16:00 02/13/18 16:00 02/13/18 16:00 Laboratory Results 02/12/18 05:27 02/12/18 02/13/18 02/14/18 05:59 05:59 05:59 Intake Total 100 400 Output Total 100 300 Balance 0 100 - C-Spine Clearance Cervical Spine Cleared: Yes Physical Exam - Physical Exam General Appearance: WD/WN, alert, no apparent distress EENT: PERRL/EOMI, normal ENT inspection, No scleral icterus (R), No scleral icterus (L), No hearing deficit Respiratory: other (decreased at bases left worse than right), No accessory muscle use Cardiac/Chest: regular rate, rhythm Abdomen: normal bowel sounds, non-tender, soft Back: Other (scoliosis and kyphotic) Skin: normal color, warm/dry
--- NOTE | 2018-02-13 17:44 | ASMTCMCOM ---
CM Note CM Note Notes: Pt was able to get letter for apt leasing office notarized by Kristen Farfan. Date Signed: 02/13/2018 05:44 PM Electronically Signed By:Christi Lala RN
[2018-02-13] MEDS: PATCH REMOVAL 1 EA PATCH TD SCH (21:46)
[2018-02-13] MEDS: BISACODYL 5 MG EC TAB PO PRN (21:46)
[2018-02-14] MEDS: FLUTICASONE NASAL 120 SPRAYS/16 GM MDI EACHNARE PRN ×2 (02:18→09:41)
[2018-02-14] MEDS: clonazePAM 1 MG TAB PO SCH ×2 (05:49→12:10)
[2018-02-14] MEDS: ACETAMINOPHEN 500 MG TAB PO SCH (06:28)
[2018-02-14 08:26] VITALS: BP 91/45
--- NOTE | 2018-02-14 09:20 | TRAUMAPN ---
Trauma Progress Note Assessment/Plan: 62yo F s/p fall c L sided rib fx, small effusion VSS, HDs - really has been on minimal O2 - her CXR today other than a large hiatal hernia is reassuring. The effusion is small and doesnt need intervention - pain controlled - on for dc from trauma surg standpoint Subjective: wants to go home Objective: Vital Signs Temp Pulse Resp BP Pulse Ox 36.4 C 61 16 91/45 L 96 02/14/18 08:00 02/14/18 08:00 02/14/18 08:00 02/14/18 08:00 02/14/18 08:00 Laboratory Results 02/12/18 05:27 02/13/18 02/14/18 02/15/18 05:59 05:59 05:59 Intake Total 400 300 Output Total 300 2 Balance 100 298 - C-Spine Clearance Cervical Spine Cleared: Yes
[2018-02-14] MEDS: LIDOCAINE 4%/MENTHOL 1% PATCH TD SCH (09:41)
[2018-02-14] MEDS: CITALOPRAM 20 MG TAB PO SCH (09:43)
[2018-02-14] MEDS: DULoxetine 60 MG CAP PO SCH (09:43)
[2018-02-14] MEDS: GABAPENTIN 300 MG CAP PO SCH (09:44)
[2018-02-14] MEDS: POLYETHYLENE GLYCOL 3350 17 GM PKT PO SCH (09:44)
[2018-02-14] MEDS: PANTOPRAZOLE SODIUM 40 MG TAB PO SCH (09:44)
[2018-02-14] MEDS: ENOXAPARIN 40 MG/0.4 ML SYR SC SCH (09:44)
[2018-02-14] MEDS: cycloSPORINE 0.05% 30 DROPERETTE/BOX EACHEYE SCH (09:45)
[2018-02-14] MEDS: Difluprednate [Durezol] 1 DROP LEFTEYE SCH (09:55)
--- NOTE | 2018-02-14 09:57 | PDIAF ---
- Diagnosis Diagnosis: rib fractures Code Status: Full Code - Medication Management Discharge Medications: electronically signed and located in the Home Medication List. - Orders Services needed: Registered Nurse, Certified Pipe Bow[employer] Paint Trimmer, Physical Therapy, Occupational Therapy Oxygen: 2L nocturnal by [place] Diet Recommendation: no restrictions on diet Additional Instructions: Continue cough, deep breathing and incentive spirometer. - Follow Up Care Current Providers and Referrals: NONE *PRIMARY CARE P,. [Unknown] - As per Instructions Lora Gonzales MD [Medical Doctor] - (2 weeks after discharge)
--- NOTE | 2018-02-14 10:31 | GDS ---
ALL DIAGNOSES: 1. Four left-sided rib fractures, as well as likely small hemothorax. 2. Mechanical fall. 3. Underweight, with a body mass index of 17. 4. Anemia. 5. Depression. 6. Bradycardia. 7. Chronic low back pain with implanted pain pump. 8. Gastroesophageal reflux disease/hiatal hernia. ALL CONSULTATIONS: Trauma/general surgery. HOSPITAL COURSE: This 62-year-old female presented after a mechanical fall where she landed on her l eft rib cage. She has multiple rib fractures. She has been seen by Trauma Surgery, who did not elian mmend any intervention. She does have a left-sided pleural effusion that is likely a hemothorax, whi ch has been stable in size on subsequent imaging. Her pain is reasonably well controlled on her home pain medications, with the addition of a Lidoderm patch. She is somewhat hypoxic at night, which josefina michaud reports is new for her. She will be discharged to fdc facility in stable condition for ongoing physical therapy, as well as occupational therapy. As above, Lidoderm patch has been starte d. Supplemental oxygen should be provided at night as she is desaturating, likely due to her rib fra ctures. Her oxygen on room air on discharge is 90% to 91%. She has significant GERD, which is likely explained by her hiatal hernia. She should follow up with Dr. Gonzales, both for consideration of fundoplication with her hiatal hernia, as well as a post-hospital followup. She would also like to talk to Dr. Verma about potential in terventions regarding her hiatal hernia. BILLING: I spent more than 30 minutes on the day of discharge coordinating care. /[id number]/MODL
--- NOTE | 2018-02-14 10:32 | ASMTLACE ---
NEVA Length of stay for Answers: 3 days current admission Acuity / Level of Answers: Yes Care: Did the patient have an inpatient admission? Comorbidities - select Answers: Opioid dependence all that apply / Chronic pain Other Notes: Nerve damage # of Emergency department Answers: 1-2 visits in the last 6 months Social determinants Answers: Mental health diagnosis (anxiety, depression, pers onality disorders, etc.) Score: 15 Date Signed: 02/14/2018 10:31 AM Electronically Signed By:Christi Lala RN
--- NOTE | 2018-02-14 11:57 | ASMTDCNOTE ---
Case Management Discharge Discharge Order Complete? Answers: Yes Patient to Obtain Answers: Other Notes: [facility] Re[facility] Medications Transportation Arranged Answers: Other Notes: [facility] Transport will Pick (Date 02/14/2018 02:00 PM & Time) Faxed Final Orders Answers: Yes Agency/Facility Transfer Answers: Yes Report Printed & Faxed to Receiving Agency Discharge Comments Notes: D/w MD, final orders faxed. Raina at [facility] notified, RN to call report. Referral made to [facility] program per pt request. Date Signed: 02/14/2018 11:56 AM Electronically Signed By:Christi Lala RN
--- NOTE | 2018-02-14 16:50 | ASDISCHSUM ---
Discharge Information Plan Status:SNF Medically Cleared to Leave: Discharge Date:02/14/2018 02:12 PM CM D/C Disposition:Assisted Facility ADT D/C Disposition:Assisted Facility Projected Discharge Date:02/12/2018 11:00 AM Transportation at D/C:Wheelchair Van Discharge Delay Reason: Follow-Up Date:02/12/2018 11:00 AM Discharge Slot: Final Diagnosis: Placement Information Referral Type:*Group Home/SNF Referral ID:[id number] Provider Name:[facility] Address 1:[address] Address 2: City:[place] Selection Factors: State:[place] Patient Contact Information Contact Name:JOI Relationship:Son Address: Work Phone: City: [facility] Phone: [facility] Code: Email: Financial Information Financial Class:Medicare Primary Plan Desc:MEDICARE INPATIENT Primary Plan Number:[id number] Secondary Plan Desc:[facility] Secondary Plan Number:[id number] Assessment Information LACE LACE Length of stay for Answers: 3 days current admission Acuity / Level of Answers: Yes Care: Did the patient have an inpatient admission? Comorbidities - select Answers: Opioid dependence all that apply / Chronic pain Other Notes: Nerve damage # of Emergency department Answers: 1-2 visits in the last 6 months Social determinants Answers: Mental health diagnosis (anxiety, depression, pers onality disorders, etc.) Score: 15 Date Signed: 02/14/2018 10:31 AM Electronically Signed By:Christi Lala RN [facility] CM Progress Note CM Note CM Note Notes: Pt is a 62 y/o female admitted for left sided rib pain. Inpatient rehab has signed off on pt. OT and SPL are both recommending SNF. CM met w/ pt for dispo planning. Pt is agreeable w/ going to SNF. Pt reports that she has been to SNF once and it was to [facility]. Pt would like a referral sent there. Pt reports that she is moving into a new living situation on . Pt reports that she needs to get the deposit to the [facility] by then. Pt reports that she can ask her two friends or have her son do it for her. Pt reports that she has her check book to be able to write the check. CM to follow. Plan: SNF Date Signed: 02/11/2018 04:10 PM Electronically Signed By:VIKY Marcus [facility] Progress Note CM Note CM Note Notes: IVAN spoke to pts future apartment complex per her request. IVAN spoke to Xu (P#: [phone] then press option 2). Xu reports that she does not feel comfortable w/ pt signing her lease because it sounded like she was very sedated on the phone. CM went over w/ pt that her DAVONTE (son and friend) cannot sign the lease. IVAN explained to pt that they are only allowed to make medical decisions if she is not decisional. IVAN spoke to Ruthy Mensah NP about this. Ruthy is agreeable to writing a letter for IVAN to send to this apartment complex regarding decisional capacity. Pt was decisional today. CM to follow. Date Signed: 02/11/2018 04:55 PM Electronically Signed By:VIKY Marcus [facility] Progress Note CM Note CM Note Notes: Spoke w/pt and son re; notarized letter for apartment lease. Since pt has been hospitalized, she has been unable to sign the lease and does not want to lose the apt. CM spoke with our Notary Kristen Farfan, who states all pt needs to do is write a letter stating that she gives permission for her son to sign the lease and she will notarize. CM also gave pt letter signed by hospitalist that pt is decisional. Dc date uncertain, Raina at [facility] notified. DC Plan: [facility] Date Signed: 02/13/2018 10:44 AM Electronically Signed By:Christi Lala RN [facility] Progress Note CM Note CM Note Notes: Pt was able to get letter for apt leasing office notarized by Kristen Farfan. Date Signed: 02/13/2018 05:44 PM Electronically Signed By:Christi Lala RN Case Management Discharge Plan Note Case Management Discharge Discharge Order Complete? Answers: Yes Patient to Obtain Answers: Other Notes: [facility] Rehab Medications Transportation Arranged Answers: Other Notes: [facility] Transport will Pick (Date 02/14/2018 02:00 PM & Time) Faxed Final Orders Answers: Yes Agency/Facility Transfer Answers: Yes Report Printed & Faxed to Receiving Agency Discharge Comments Notes: D/w , final orders faxed. Rania at [facility] notified, RN to call report. Referral made to [facility] program per pt request. Date Signed: 02/14/2018 11:56 AM Electronically Signed By:Christi Lala RN Intervention Information Intervention Type:*Incorrect Registration Date of Service:02/10/2018 06:50 PM Patient Type:Observation Staff Member:Chichi Ulrich Hours: Discipline: Severity: Comment: Intervention Type:*PANDEY-Signed Date of Service:02/11/2018 11:13 AM Patient Type:Observation Staff Member:Diana Watters Hours: Discipline: Severity: Comment:
== END 2018-02-14 14:12 | DRG 200 ==
LOC: INTOOBSV 17:34 → F3E 18:35 → OBSVTOIN 02-11 17:54
PROVIDERS: ADMIT Internal Medicine; ATTEND Student in an Organized Health Care Education/Training Program
DX: S27.1XXA Traumatic hemothorax, initial encounter (principal); S22.42XA Multiple fractures of ribs, left side, initial encounter for closed fracture; R63.6 Underweight; Z68.1 Body mass index [BMI] 19.9 or less, adult; D64.9 Anemia, unspecified; F32.9 Major depressive disorder, single episode, unspecified; R00.1 Bradycardia, unspecified; G89.29 Other chronic pain; M54.5 Low back pain; K21.9 Gastro-esophageal reflux disease without esophagitis; K44.9 Diaphragmatic hernia without obstruction or gangrene; M41.9 Scoliosis, unspecified; M79.7 Fibromyalgia; W18.2XXA Fall in (into) shower or empty bathtub, initial encounter; Y92.012 Bathroom of single-family (private) house as the place of occurrence of the external cause; Z95.9 Presence of cardiac and vascular implant and graft, unspecified
CPT/HCPCS: 82435-PO; 82565-PO; 82947-PO; 84132-PO; 84295-PO; 84520-PO; 85014-PO; 92507-GN; 92523-GN; 96374; 97116-GP; 97162-GP; 97166-GO; 97530-GO; 97535-GO; G0378; G8978-GP-CK; G8979-GP-CI; G8987-GO-CJ; G8988-GO-CI; G9165-GN-CK; G9166-GN-CJ; J1170; J1650; J2270; J2405; Q9967

== ENCOUNTER → 2018-03-12 | Outpatient (CLI) | payer OTHER | LOC: BRMIMAGING 13:48 | PROVIDERS: ATTEND Internal Medicine | DX: Z13.820 Encounter for screening for osteoporosis (principal); M81.0 Age-related osteoporosis without current pathological fracture; M41.9 Scoliosis, unspecified; Z82.62 Family history of osteoporosis; Z78.0 Asymptomatic menopausal state ==

== ENCOUNTER 2018-03-28 08:45 | Inpatient (IN) | payer OTHER ==
--- NOTE | 2018-03-20 15:00 | ASMTCMCOM ---
CM Note CM Note Notes: Pt called CM to report she is scheduled for JOSE MARIA 03/28/18, anticipates she will qualify for SNF and wants to go to [facility]. Pt states she resides alone and will have no one who can help her in her recovery. Pt reports she has informed MD of her SNF request. CM to work with pt when she is admitted. Date Signed: 03/20/2018 03:00 PM Electronically Signed By:JOSE Camargo
--- NOTE | 2018-04-23 06:16 | PDHPUP ---
History & Physical Update H&P update statement: This history and physical update is based on an assessment of the patient which was completed after admission or registration (within 24 hours), but prior to the surgery/procedure. H&P update: H&P reviewed & patient examined, no change in patient's condition since H&P completed
[2018-04-23] MEDS ORDERED: TRANEXAMIC ACID 3,000 MG/50 ML BAG IRR ONE (07:04)
[2018-04-23] MEDS ORDERED: VANCOMYCIN 1 GM VIAL ONE (09:24)
[2018-04-23] MEDS ORDERED: DEXAMETHASONE 4 MG/ML VIAL IVP ONE (10:22)
[2018-04-23] MEDS ORDERED: ACETAMINOPHEN 325 MG TAB PO ONE (10:22)
[2018-04-23] MEDS ORDERED: FAMOTIDINE 20 MG TAB PO ONE (10:22)
[2018-04-23] MEDS ORDERED: LR 1,000 ML IV ONE (10:23)
[2018-04-23] MEDS ORDERED: MIDAZOLAM 2 MG/2 ML VIAL IVP ONE (11:11)
[2018-04-23] MEDS ORDERED: DEXMEDETOMIDINE HCL 400 MCG in NS 100 ML IV SCH (11:30)
--- NOTE | 2018-04-23 11:32 | PDANEPAE ---
ANE History of Present Illness Late entry pt seen, examined in preop. ANE Past Medical History - Cardiovascular History Hx Hypertension: No Hx Arrhythmias: No Hx Chest Pain: No Hx Coronary Artery / Peripheral Vascular Disease: No Hx CHF / Valvular Disease: No Hx Palpitations: No Cardiovascular History Comment: low HR especially at noc - Pulmonary History Hx COPD: No Hx Asthma/Reactive Airway Disease: No Hx Recent Upper Respiratory Infection: No Hx Oxygen in Use at Home: No Hx Sleep Apnea: No Sleep Apnea Screening Result - Last Documented: Negative Pulmonary History Comment: o2 levels drop at noc - Neurologic History Hx Cerebrovascular Accident: No Hx Seizures: No Hx Dementia: No Neurologic History Comment: cranial and facial nerve damage s/p sinus surgery - Endocrine History Hx Diabetes: No - Renal History Hx Renal Disorders: No - Liver History Hx Hepatic Disorders: No - Neurological & Psychiatric Hx Hx Neurological and Psychiatric Disorders: Yes Neurological / Psychiatric History Comment: extreme anxiety. depression. chronic pain syndrome - Cancer History Hx Cancer: No - Congenital Disorder History Hx Congenital Disorders: No - GI History Hx Gastrointestinal Disorders: Yes Gastrointestinal History Comment: hiatal hernia. reflux. constipation - Other Health History Other Health History: fibromyalgia. arthritis. osteoporosis - Chronic Pain History Chronic Pain: Yes (generalized and left hip) - Surgical History Prior Surgeries: tonsillectomy. sinus surgery-multiple times broken elbow repair. pain pump placed and replacement x4 ANE Review of Systems Review of Systems: - Exercise capacity METS (RN): 4 METS ANE Patient History - Allergies Allergies/Adverse Reactions: Cephalosporins Allergy (Severe, Verified 04/23/18 10:53) Hives clindamycin Allergy (Severe, Verified 04/23/18 10:53) Hives methadone [Methadone] Allergy (Severe, Verified 03/27/18 17:14) Anaphylaxis prochlorperazine edisylate [From Compazine] Allergy (Severe, Verified 04/23/18 10:53) Anaphylaxis prochlorperazine maleate [From Compazine] Allergy (Severe, Verified 04/23/18 10: 53) Anaphylaxis ondansetron HCl [From Zofran] Allergy (Intermediate, Verified 04/23/18 10:53) Anaphylaxis cephalexin monohydrate [From Keflex] Allergy (Mild, Verified 04/23/18 10:53) Rash Sulfa (Sulfonamide Antibiotics) Allergy (Mild, Verified 04/23/18 10:53) Rash banana Allergy (Verified 04/23/18 10:53) Anaphylaxis cucumber Allergy (Verified 04/23/18 10:53) Anaphylaxis tomato Allergy (Verified 04/23/18 10:53) Anaphylaxis ANTIEMETICS Allergy (Severe, Uncoded 04/23/18 10:53) Rash IMATICON Allergy (Severe, Uncoded 04/23/18 10:53) Anaphylaxis PHENOTHYAZINES Allergy (Severe, Uncoded 04/23/18 10:53) Anaphylaxis prochlorperazine edisylate Allergy (Severe, Uncoded 04/23/18 10:53) Anaphylaxis prochlorperazine maleate Allergy (Severe, Uncoded 04/23/18 10:53) Anaphylaxis cephalexin monohydrate Allergy (Mild, Uncoded 04/23/18 10:53) Rash ondansetron HCl Allergy (Mild, Uncoded 04/23/18 10:53) Rash THIAZINE Adverse Reaction (Intermediate, Uncoded 04/23/18 10:53) Anaphylaxis TRICYCLICS Adverse Reaction (Intermediate, Uncoded 03/27/18 17:14) Hives - Home Medications Home Medications: ALPRAZolam [Xanax 1 MG (*)] 0.25 mg PO DAILY PRN 05/17/17 [Last Taken 2 Days Ago ~04/21/18] Citalopram [CeleXA 20 MG] 20 mg PO DAILY 05/17/17 [Last Taken 04/23/18] DULoxetine [Cymbalta 60 MG (*)] 60 mg PO DAILY 05/17/17 [Last Taken 04/23/18] Difluprednate [Durezol] 1 drop LEFTEYE BID PRN 05/17/17 [Last Taken 2 Days Ago ~ 04/21/18] Fluticasone Nasal [Flonase Nasal [place]] 1 sprays NASAL BID PRN 05/17/17 [Last Taken 1 Day Ago ~04/22/18] Gabapentin [Neurontin 300 MG (*)] 600 mg PO TID 05/17/17 [Last Taken 04/23/18] Herbals/Supplements -Info Only 1 ea PO DAILY 05/17/17 [Last Taken 1 Week Ago ~] Ibandronate Sodium [Boniva] 150 mg PO .QMONTH 05/17/17 [Last Taken 04/07/18] Omeprazole 20 mg PO QID 05/17/17 [Last Taken 04/23/18] Polyethylene Glycol 3350 [Miralax 17 gm (*)] 17 gm PO DAILY #0 05/17/17 [Last Taken 1 Day Ago ~04/22/18] clonazePAM [klonoPIN (*)] 1 mg PO MOTHFR@05/17/17 [Last Taken 04/23/18] clonazePAM [klonoPIN (*)] 1 mg PO SUTUWESA@,05/17/17 [Last Taken 1 Day Ago ~04/22/18] cycloSPORINE 0.05% [Restasis Opht Drops(*)] 1 drop EACHEYE BID 05/17/17 [Last Taken 04/23/18] oxyCODONE IR [Oxycodone Ir (*)] 10 - 20 mg PO QID PRN 05/17/17 [Last Taken 2 Days Ago ~04/21/18] clonazePAM [Clonazepam] 2 mg PO MOTHFR@0600 02/10/18 [Last Taken 2 Days Ago ~] Hydromorphone 4127mcg/Day Pump 1 each MISC CONT 02/11/18 [Last Taken 04/23/18] - NPO status NPO Since - Liquids (Date): 04/22/18 NPO Since - Liquids (Time): 21:00 NPO Since - Solids (Date): 04/22/18 NPO Since - Solids (Time): 21:00 - Smoking Hx Smoking Status: Never smoked - Family Anes Hx Family Hx Anesthesia Complications: none ANE Labs/Vital Signs - Vital Signs Blood Pressure: 138/70 Heart Rate: 51 Respiratory Rate: 16 O2 Sat (%): 96 Height: 160.02 cm Weight: 45.5 kg ANE Physical Exam - Airway Neck exam: decreased ROM Mallampati Score: Class 3 Mouth exam: poor dentition - ASA Status ASA Status: III ANE Anesthesia Plan Anesthesia Plan: general endotracheal anesthesia Specialized Airway: video laryngoscope
[2018-04-23] MEDS ORDERED: fentaNYL 100 MCG/2 ML INJ ONE ×2 (11:57→12:09)
[2018-04-23] MEDS ORDERED: ROPIVACAINE 0.2% 80 MG, EPINEPHrine 0.2 MG, KETOROLAC TROMETHAMINE 30 MG in SYRINGE 0 ML IU ONE (12:00)
[2018-04-23] MEDS ORDERED: TRANEXAMIC ACID 3,000 MG in NS (SYRINGE) 50 ML IRR ONE (12:00)
[2018-04-23] MEDS ORDERED: VANCOMYCIN PHARMACY TO DOSE MISC ONE (12:00)
[2018-04-23] MEDS ORDERED: VANCOMYCIN 750 MG in D5W 150 ML IV ONE (12:00)
[2018-04-23] MEDS ORDERED: PROPOFOL 200 MG/20 ML VIAL ONE (12:09)
[2018-04-23] MEDS ORDERED: SUCCINYLCHOLINE CHLORIDE 200 MG/10 ML SYR IVP ONE (12:10)
[2018-04-23] MEDS ORDERED: METOCLOPRAMIDE 10 MG/2 ML VIAL ONE (12:12)
[2018-04-23] MEDS ORDERED: fentaNYL 100 MCG/2 ML INJ IV ONE (12:15)
[2018-04-23] MEDS ORDERED: DEXAMETHASONE 4 MG/ML VIAL ONE (12:30)
[2018-04-23] MEDS ORDERED: ePHEDrine SULFATE 25 MG/5 ML SYR ONE ×2 (12:30→13:41)
[2018-04-23] MEDS ORDERED: GLYCOPYRROLATE 0.2 MG/1 ML VIAL ONE ×2 (12:39→13:27)
[2018-04-23] MEDS ORDERED: HYDROmorphONE/DILAUDID 2 MG/ML INJ ONE ×2 (12:42→14:07)
[2018-04-23] MEDS ORDERED: PHENYLEPHRINE HCL 100 MCG/ML SYR ONE (12:44)
[2018-04-23] MEDS ORDERED: NEOSTIGMINE METHYLSULFATE 5 MG/5 ML SYR ONE (13:27)
[2018-04-23] MEDS ORDERED: NALOXONE HCL 0.4 MG/ML INJ IVP PRN (13:32)
[2018-04-23] MEDS ORDERED: LR 500 ML IV PRN (13:32)
[2018-04-23] MEDS ORDERED: fentaNYL 100 MCG/2 ML INJ IVP PRN (13:32)
[2018-04-23] MEDS ORDERED: METOCLOPRAMIDE 10 MG/2 ML VIAL IVP PRN ×2 (13:32→13:59)
[2018-04-23] MEDS ORDERED: MEPERIDINE 25 MG/0.5 ML AMP IVP PRN (13:32)
[2018-04-23] MEDS ORDERED: ALBUTEROL 3 ML DEYVIAL IH PRN (13:32)
--- NOTE | 2018-04-23 13:53 | POSTOPPROG ---
Post Op Note Date of Operation: 04/23/18 Surgeon: Salena Mcdonnell [employer] Taxonomist: Varsha Barlow PA-C Anesthesiologist: Dr. Aj Anesthesia: Spinal Pre-op Diagnosis: left hip OA Post-op Diagnosis: same Indication: left hip pain Procedure: left JOSE MARIA Findings: severe OA of left hip Inf/Abcess present in the surg proc area at time of surgery?: No EBL: 50-100
[2018-04-23] MEDS ORDERED: DIPHENOXYLATE/ATROPINE LOMOTIL 1 TAB PO PRN (13:59)
[2018-04-23] MEDS ORDERED: ONDANSETRON DISINTEGRATING 4 MG TAB PO PRN (13:59)
[2018-04-23] MEDS ORDERED: LACTULOSE 20 GM/30 ML UDCUP PO PRN (13:59)
[2018-04-23] MEDS ORDERED: diphenhydrAMINE 25 MG CAP PO PRN (13:59)
[2018-04-23] MEDS ORDERED: BISACODYL 10 MG SUPP PR PRN (13:59)
[2018-04-23] MEDS ORDERED: MAGNESIUM HYDROXIDE 30 ML UDCUP PO PRN (13:59)
[2018-04-23] MEDS ORDERED: CYCLOBENZAPRINE 10 MG TAB PO PRN (13:59)
[2018-04-23] MEDS ORDERED: POLYETHYLENE GLYCOL 3350 17 GM PKT PO PRN (13:59)
[2018-04-23] MEDS ORDERED: ONDANSETRON 4 MG/2 ML VIAL IVP PRN (13:59)
[2018-04-23] MEDS ORDERED: TEMAZEPAM 15 MG CAP PO PRN (13:59)
[2018-04-23] MEDS ORDERED: PROMETHAZINE HCL 25 MG/ML INJ IVP PRN (13:59)
[2018-04-23] MEDS ORDERED: PROMETHAZINE HCL 25 MG SUPPR PR PRN (13:59)
[2018-04-23] MEDS ORDERED: DIFLUPREDNATE LEFTEYE PRN (14:02)
[2018-04-23] MEDS ORDERED: ALPRAZolam 1 MG TAB PO PRN (14:02)
--- NOTE | 2018-04-23 14:05 | POSTANESTH ---
Post Anesthetic Evaluation Cardiovascular Status: Normal, Stable Respiratory Status: Normal, Stable Level of Consciousness/Mental Status: Mildly Sleepy, Arousable Pain Control: Adequate, Prn Tx Ordered Nausea/Vomiting Control: Adequate, Prn Tx Ordered Complications Possibly Related to Anesthesia: None Noted
[2018-04-23] MEDS: HYDROmorphONE/DILAUDID 2 MG/ML INJ IVP PRN ×4 (14:10→14:48)
[2018-04-23] MEDS ORDERED: [UNRECOGNIZED DRUG - OTHER] MISC SCH (14:15)
[2018-04-23] MEDS ORDERED: DIAZEPAM 5 MG/ML 1 ML SYR ONE (14:26)
[2018-04-23] MEDS: DIAZEPAM 5 MG/ML 1 ML SYR IVP PRN ×2 (14:28→14:34)
[2018-04-23] MEDS ORDERED: oxyCODONE IR 5 MG TAB ONE (15:30)
[2018-04-23] MEDS: clonazePAM 1 MG TAB PO SCH ×2 (15:36→21:42)
[2018-04-23] MEDS: oxyCODONE IR 5 MG TAB PO PRN (15:37)
--- NOTE | 2018-04-23 16:19 | PDMN ---
Medical Necessity Medical necessity: [facility] IP only surgery; cpt 40052 L JOSE MARIA
[2018-04-23] MEDS: GABAPENTIN 300 MG CAP PO SCH ×2 (16:31→21:40)
[2018-04-23] MEDS: LR 1,000 ML IV SCH (18:07)
[2018-04-23] MEDS ORDERED: TRIMETHOBENZAMIDE HCL 300 MG PO PRN ×2 (19:07→19:30)
[2018-04-23] MEDS: ACETAMINOPHEN 325 MG TAB PO SCH (21:40)
[2018-04-23] MEDS: SENNOSIDES/DOCUSATE SODIUM TAB PO SCH ×2 (21:41→23:15)
[2018-04-23] MEDS: OLOPATADINE HCL EACHEYE SCH (21:42)
[2018-04-23] MEDS: FLUTICASONE NASAL 120 SPRAYS/16 GM MDI NS PRN (21:43)
[2018-04-23] MEDS: ASPIRIN 81 MG CHEWABLE TAB PO SCH (21:44)
[2018-04-23] MEDS: FAMOTIDINE 20 MG TAB PO SCH (21:44)
[2018-04-23] MEDS: cycloSPORINE 0.05% 30 DROPERETTE/BOX EACHEYE SCH (21:45)
[2018-04-24] MEDS: ACETAMINOPHEN 325 MG TAB PO SCH ×4 (02:47→21:41)
[2018-04-24] MEDS: LR 1,000 ML IV SCH ×2 (04:50→13:58)
[2018-04-24] MEDS: oxyCODONE IR 5 MG TAB PO PRN ×2 (06:39→21:42)
[2018-04-24] MEDS: clonazePAM 1 MG TAB PO SCH ×3 (06:39→21:43)
[2018-04-24] MEDS ORDERED: NS 500 ML IV ONE ×2 (08:30→10:30)
[2018-04-24] MEDS: POLYETHYLENE GLYCOL 3350 17 GM PKT PO SCH (09:24)
[2018-04-24] MEDS: GABAPENTIN 300 MG CAP PO SCH ×3 (09:26→21:41)
[2018-04-24] MEDS: SENNOSIDES/DOCUSATE SODIUM TAB PO SCH ×2 (09:26→21:41)
[2018-04-24] MEDS: FAMOTIDINE 20 MG TAB PO SCH ×2 (09:27→21:41)
[2018-04-24] MEDS: ASPIRIN 81 MG CHEWABLE TAB PO SCH ×2 (09:27→21:43)
[2018-04-24] MEDS: CITALOPRAM 20 MG TAB PO SCH (09:28)
[2018-04-24] MEDS: DULoxetine 60 MG CAP PO SCH (09:29)
[2018-04-24] MEDS: cycloSPORINE 0.05% 30 DROPERETTE/BOX EACHEYE SCH ×2 (09:32→21:39)
[2018-04-24] MEDS: OLOPATADINE HCL EACHEYE SCH ×2 (10:34→21:42)
--- NOTE | 2018-04-24 12:36 | GOP ---
[f rep st] OPERATIVE REPORT DATE OF OPERATION: 04/23/2018 SURGEON: Tino Barlow MD COLLEGE SPORTS ASSISTANT: 1. Dot Barlow PA-C. 2. Salena Mcdonnell PA-C. PREOPERATIVE DIAGNOSIS: Left hip osteoarthritis. POSTOPERATIVE DIAGNOSIS: Left hip osteoarthritis. PROCEDURE PERFORMED: Total hip arthroplasty with x-ray. FINDINGS: ESTIMATED BLOOD LOSS: 200 cc. INDICATIONS: The patient has progressively worsening arthritis of the hip which has failed medical m anagement. The patient understands the treatment options including continued non-operative care and has selected surgical intervention. The patient has decided to undergo total hip arthroplasty via th e direct anterior approach, understanding the risks of the procedure including, but not limited to, n eurovascular injury, infection, persistent pain, component wear and loosening, deep venous thrombosis , pulmonary embolism, limb length inequality, hip instability (including dislocation), and intra-oper ative fractures. DESCRIPTION OF PROCEDURE: After proper identification of the patient including verification and regine ing the surgical site, the patient was brought to the operating room and placed in the supine positio n. All bony prominences were well padded. Anesthesia was induced without complication and intraveno us prophylactic antibiotics were administered prior to skin incision. The operative leg was placed in the Trumpf Arch table extension and the well leg in a Yellofin leg ho lder. The patient was prepped and draped in the usual sterile fashion. The C-arm was draped for int ra-operative fluoroscopy to check acetabular position, femoral component position including leg lengt h and femoral offset. Attention was then drawn to surgical exposure of the hip. An incision was made with a #10 Bard David r blade starting 3 cm lateral and 3 cm distal to the anterior superior iliac spine measuring 8-10 cm and coursing distally toward the greater trochanter. The skin and subcutaneous tissues were divided sharply down to the fascia jamel. The fascia jamel was incised in line with the skin incision exposing the underlying tensor fascia jamel muscle. The muscle was bluntly elevated from the fascia and the f irst extracapsular Cobra retractor was placed laterally at the junction of the superior femoral neck and greater trochanter. The lateral femoral circumflex vessels were identified, cauterized, and divi ded with the Aquamantys bipolar cautery. The deep investing fascia of the TFL was divided to allow p lucas mobilization of the muscle preventing damage during the retraction. The reflected head of the rectus femoris muscle was elevated off the anterior hip capsule and a medial Cobra retractor was plac ed just proximal to the lesser trochanter. The anterior capsulotomy was made sharply from the superolateral acetabulum to the saddle junction of the superior femoral neck and greater trochanter, then coursing inferomedial towards the lesser troc hanter. The retractors were then placed in the intracapsular position for femoral neck osteotomy. C orresponding to pre-operative templating, the osteotomy was made with the oscillating saw carefully p rotecting the greater trochanter and soft tissues. The femoral head was removed from the acetabulum with a corkscrew and confirmed to be severely arthritic with exposed bone, deformity and osteophytes. Similar findings were confirmed in the acetabulum. The Arch table extension was then placed in 40 degrees external rotation. Attention was then drawn to the acetabular preparation. After placement of the anterior and posterio r Cobra retractors outside the labrum and intracapsular, the circumferential labrum was removed sharp ly. The foveal contents were then removed and hemostasis obtained with cautery. The first reamer selected was sized using the removed femoral head. Reaming began with medialization and then commenced in 2 mm increments at 45 degrees of abduction and 15 degrees of anteversion using fluoroscopic navigation. Reaming ceased 1 mm less than the definitive acetabular component and vidal esponded to the pre-operative templating. The final acetabular component was inserted using fluorosc opy to achieve proper orientation yielding excellent purchase and stability in the acetabulum. The f inal acetabular liner was then placed and its seating confirmed. Attention was then turned to the femur. The Arch table extension was placed in extension and adducti on, delivering the osteotomized femoral neck into the wound. A 2-pronged femoral elevator was placed at the calcar and another at the tip of the greater trochanter. The posterolateral capsule was rele ased with cautery allowing mobilization of the femur lateral and anterior for preparation. The exter nal rotators were visualized and preserved. A curette and rongeur were used to open the starting poi nt for broaching. Serial broaching started with the #0 broach and ended with the broach that exhibit ed excellent fit in the proximal femur. A change in pitch during mallet strikes was accompanied by t he inability to advance the broach any further. The trial reduction was performed and fluoroscopic n avigation was utilized to check limb length. Adjustments were made to equalize limb length according ly. After the final trials were accepted they were removed and the wound was copiously lavaged. The femo ral component was seated to the same depth as the final broach and the femoral head was impacted onto the clean trunnion. The hip was then reduced for the final time and once more fluoroscopy was used to check that limb length equality was achieved. The wound was irrigated and closed in layers, the fascia jamel with 2-0 Quill, the subcutaneous tissue with 2-0 Quill, and the skin with Dermabond. Sterile dressings were applied. Final sharps and spon ge counts were accurate. The patient was then transferred to a hospital bed and brought to the [facility] room in stable condition. IMPLANTS: Accolade II size 4 at 132, acetabular component, a Trident II 48 mm. Liner is Trident X3 a t 32 mm. Head is a Biolox Delta at 32 mm -4. /[id number]/MODL
--- NOTE | 2018-04-24 13:38 | ASMTCMCOM ---
CM Note CM Note Notes: Pt had her planned hip surgery yesterday. PT rec SNF and pt still chooses [facility], referral sent in [employer]. D/c plan of care: [facility] Date Signed: 04/24/2018 01:38 PM Electronically Signed By:JOSE Camargo
--- NOTE | 2018-04-24 15:38 | SOAPPROG ---
SOAP Progress Note Assessment/Plan: Assessment: Patient is doing well POD 1 s/p LTHA Pain management: pt. has resumed Dilaudid pain pump for chronic pain. Required one dose of IV morphine yesterday but pain has been well-controlled with oral pain medication today. VTE ppx: recommend 81 mg aspirin morning and evening for 4 weeks, cont TRINO and SCDs Anemia: H/H low post-operatively at 7.6/23. Possibly affected by infiltrate in right arm, depending on where blood was drawn. Pt. is mildly symptomatic with light-headedness. Continue to monitor and consider transfusion if H/H continues to be low. Urine output: pt. had low urine output overnight. Was given two 500mL NS boluses today and urine production (as noted in bladder scan) improved but pt. has still not voided spontaneously. BMP showed slightly low Na (133), Ca (7.8) and Cr (0.5). Will continue to monitor urine output. BP: BP has been low during hospital stay (92/38). Pt. does have history of low BP during previous hospitalizations. Gave 2 fluid boluses today- will continue to monitor BP. Plan: Will continue to monitor patient in hospital overnight and re-assess tomorrow. Pt. is planning on going to SNF upon being discharged from hospital. Has been approved at [facility]. 04/24/18 15:30 04/24/18 15:38 04/24/18 15:42 04/24/18 15:44 04/24/18 15:48 04/24/18 15:48 Subjective: No nausea, vomiting, shortness of breath, chest pain. Pain well controlled. Objective: Vital Signs Temp Pulse Resp BP Pulse Ox 36.6 C 62 11 L 92/38 L 96 04/24/18 12:39 04/24/18 12:39 04/24/18 12:39 04/24/18 12:39 04/24/18 12:39 Laboratory Results 04/24/18 05:12 04/24/18 10:35 04/23/18 04/24/18 04/25/18 05:59 05:59 05:59 Intake Total 2925 1840 Output Total 550 Balance 3505 1840 LLE: incision dressing clean and dry, positive PF/DF, NVI ICD10 Worksheet Patient Problems: Problems Problem Status Onset Primary osteoarthritis of right hip Acute Chronic pain Acute Fall in bathtub Acute Fibromyalgia affecting multiple sites Acute Hip arthritis Acute Multiple rib fractures Acute
--- NOTE | 2018-04-24 15:58 | PDIAF ---
<Salena Mcdonnell - Last Filed: 04/26/18 09:59> - Diagnosis Diagnosis: s/p right JOSE MARIA Code Status: Full Code - Medication Management Discharge Medications: electronically signed and located in the Home Medication List. PICC Care - Routine: N/A - Orders Services needed: Certified General Manager In Training, Physical Therapy, Occupational Therapy Diet Recommendation: no restrictions on diet Diet Texture: Regular Texture Diet Additional Instructions: Joint Protocol-Hip Replacement Follow up with Dr. Villalpando office as scheduled After surgery instructions: Take Aspirin 81mg by mouth twice daily for 4 weeks (helps to prevent blood clots ) Wear thigh high TRINO hose on both legs during the daytime for 2 weeks (helps to prevent blood clots and decrease swelling in the surgical leg). It is ok to remove TRINO hose at night time to give your legs a break. It is common for swelling and bruising to occur in the entire surgical leg even extending to the foot, if concerned call Dr. Martinez office [phone] Weight bearing as tolerated Use a walker for 7-14 days Do exercises in the book 2-3 times a day Ice at least 3-5 times a day for 30 minutes each time, if not more often. ~~If you have further questions that are not addressed here, please look at the information packet handed to you at the preop appointment. ~Most will be answered on the FAQs, after surgery instructions and incision care pages. ~You may also call Dr. Irasema brito with questions as well. *IF YOU HAVE A LIFE THREATENING EMERGENCY, CALL 911. FOR NON-LIFE THREATENING ISSUES, PLEASE CALL DR. VILLALPANDO OFFICE FIRST. A PHYSICIAN IS PROTECTIVE SIGNAL OPERATOR 17/09. Incision/Dressing Care: May shower tomorrow, please do no submerge in water, but you do not have to cover for showers Keep the incision (lord) dressing clean and dry. If the incision dressing gets soiled or wet underneath, change dressing to the dressing given to you by the hospital. (lord dressing will turn black if drainage occurs) Remove incision dressing (lord one) two weeks after surgery. ~Leave steri strips alone. ~They will fall off on their own. Do not have anyone else remove the incision dressing prior to the stated recommendation (2 weeks after surgery). ~If there are incision concerns, contact Dr. Martinez office. ~(Dot or Dr. Barlow may remove earlier if concerns arise) If incision site (lord dressing) has drainage, call Dr. Martinez office, [phone]. ~Dot and Dr. Barlow may ask you to come into the office for further evaluation - Follow Up Care Current Providers and Referrals: Sina Verma MD [Primary Care Provider] - Salena Mcdonnell PAC [[employer]] - 05/13/18 3:30 pm <Saul Barlow - Last Filed: 04/26/18 12:26> - Diagnosis Diagnosis: s/p Left JOSE MARIA - Medication Management Discharge Medications: electronically signed and located in the Home Medication List.
[2018-04-24] MEDS ORDERED: NS 1,000 ML IV ONE (18:30)
[2018-04-24] MEDS: FLUTICASONE NASAL 120 SPRAYS/16 GM MDI NS PRN (21:43)
[2018-04-25] MEDS: LR 1,000 ML IV SCH ×2 (00:52→09:12)
[2018-04-25] MEDS: ACETAMINOPHEN 325 MG TAB PO SCH ×4 (02:54→21:03)
[2018-04-25] MEDS: clonazePAM 1 MG TAB PO SCH ×3 (06:37→21:03)
[2018-04-25] MEDS: CITALOPRAM 20 MG TAB PO SCH (08:15)
[2018-04-25] MEDS: ASPIRIN 81 MG CHEWABLE TAB PO SCH ×2 (08:15→21:02)
[2018-04-25] MEDS: POLYETHYLENE GLYCOL 3350 17 GM PKT PO SCH (08:16)
[2018-04-25] MEDS: FAMOTIDINE 20 MG TAB PO SCH ×2 (08:16→21:02)
[2018-04-25] MEDS: GABAPENTIN 300 MG CAP PO SCH ×3 (08:16→21:02)
[2018-04-25] MEDS: DULoxetine 60 MG CAP PO SCH (08:16)
[2018-04-25] MEDS: SENNOSIDES/DOCUSATE SODIUM TAB PO SCH ×2 (08:57→21:05)
[2018-04-25] MEDS: OLOPATADINE HCL EACHEYE SCH ×2 (09:13→21:05)
[2018-04-25] MEDS: FLUTICASONE NASAL 120 SPRAYS/16 GM MDI NS PRN ×2 (09:13→23:34)
[2018-04-25] MEDS: cycloSPORINE 0.05% 30 DROPERETTE/BOX EACHEYE SCH ×2 (09:14→21:04)
--- NOTE | 2018-04-25 16:38 | ASMTCMCOM ---
CM Note CM Note Notes: D/c plan remains [facility] tomorrow. Date Signed: 04/25/2018 04:37 PM Electronically Signed By:JOSE Camargo
[2018-04-25] MEDS ORDERED: NS 1,000 ML IV SCH (17:45)
--- NOTE | 2018-04-25 17:56 | PDHOSCONS ---
History and Physical - Chief Complaint Urinary retention - History of Present Illness HPI: Hospital medicine has been asked to consult by orthopedics Dr. Barlow d/ t urinary retention. This is a 62 y/o female w/hx of chronic LBP w/ pain pump , depression, and fibromyalgia who underwent left total hip arthroplasty on 04/23 with an estimated blood loss of 200cc. Since that time, she has had difficulty spontaneously urinating and has received one straight cath and one indwelling catheter which was removed this AM. She received a total of 2L NS boluses plus her maintenance fluids over this time. Today, she voided 325 ml with PVR 445 ml. She reports to me that because her pain pump puts pressure on her bladder, she has learned to ignore the sensation because "otherwise I would be going to the bathroom all the time." Denies bladder tenderness or fullness at time of examination w/ PVR 445 ml. History Information - Allergies/Home Medication List Allergies/Adverse Reactions: Cephalosporins Allergy (Severe, Verified 04/23/18 10:53) Hives clindamycin Allergy (Severe, Verified 04/23/18 10:53) Hives methadone [Methadone] Allergy (Severe, Verified 03/27/18 17:14) Anaphylaxis ondansetron HCl [From Zofran] Allergy (Severe, Verified 04/23/18 18:46) Anaphylaxis prochlorperazine edisylate [From Compazine] Allergy (Severe, Verified 04/23/18 10:53) Anaphylaxis prochlorperazine maleate [From Compazine] Allergy (Severe, Verified 04/23/18 10: 53) Anaphylaxis promethazine Allergy (Severe, Verified 04/23/18 17:26) Anaphylaxis cephalexin monohydrate [From Keflex] Allergy (Mild, Verified 04/23/18 10:53) Rash Sulfa (Sulfonamide Antibiotics) Allergy (Mild, Verified 04/23/18 10:53) Rash banana Allergy (Verified 04/23/18 10:53) Anaphylaxis cucumber Allergy (Verified 04/23/18 10:53) Anaphylaxis tomato Allergy (Verified 04/23/18 10:53) Anaphylaxis ANTIEMETICS Allergy (Severe, Uncoded 04/23/18 10:53) Rash IMATICON Allergy (Severe, Uncoded 04/23/18 10:53) Anaphylaxis PHENOTHYAZINES Allergy (Severe, Uncoded 04/23/18 10:53) Anaphylaxis prochlorperazine edisylate Allergy (Severe, Uncoded 04/23/18 10:53) Anaphylaxis prochlorperazine maleate Allergy (Severe, Uncoded 04/23/18 10:53) Anaphylaxis cephalexin monohydrate Allergy (Mild, Uncoded 04/23/18 10:53) Rash ondansetron HCl Allergy (Mild, Uncoded 04/23/18 10:53) Rash THIAZINE Adverse Reaction (Intermediate, Uncoded 04/23/18 10:53) Anaphylaxis TRICYCLICS Adverse Reaction (Intermediate, Uncoded 03/27/18 17:14) Hives Home Medications: ALPRAZolam [Xanax 1 MG (*)] 0.25 mg PO DAILY PRN 05/17/17 [Last Taken 2 Days Ago ~04/21/18] Citalopram [CeleXA 20 MG] 20 mg PO DAILY 05/17/17 [Last Taken 04/23/18] DULoxetine [Cymbalta 60 MG (*)] 60 mg PO DAILY 05/17/17 [Last Taken 04/23/18] Difluprednate [Durezol] 1 drop LEFTEYE BID PRN 05/17/17 [Last Taken 2 Days Ago ~ 04/21/18] Fluticasone Nasal [Flonase Nasal Henry] 1 sprays NASAL BID PRN 05/17/17 [Last Taken 1 Day Ago ~04/22/18] Gabapentin [Neurontin 300 MG (*)] 600 mg PO TID 05/17/17 [Last Taken 04/23/18] Herbals/Supplements -Info Only 1 ea PO DAILY 05/17/17 [Last Taken 1 Week Ago ~] Ibandronate Sodium [Boniva] 150 mg PO .QMONTH 05/17/17 [Last Taken 04/07/18] Omeprazole 20 mg PO QID 05/17/17 [Last Taken 04/23/18] Polyethylene Glycol 3350 [Miralax 17 gm (*)] 17 gm PO DAILY #0 05/17/17 [Last Taken 1 Day Ago ~04/22/18] cycloSPORINE 0.05% [Restasis Opht Drops(*)] 1 drop EACHEYE BID 05/17/17 [Last Taken 04/23/18] oxyCODONE IR [Oxycodone Ir (*)] 10 - 20 mg PO QID PRN 05/17/17 [Last Taken 2 Days Ago ~04/21/18] Hydromorphone 4127mcg/Day Pump 1 each MISC CONT 02/11/18 [Last Taken 04/23/18] Olopatadine HCl [Pazeo] 1 drop EACHEYE BID 04/23/18 [Last Taken 04/23/18] Trimethobenzamide HCl [Tigan 300MG (*)] 300 mg PO Q8H PRN 04/23/18 [Last Taken 04/09/18] clonazePAM [klonoPIN (*)] 1 mg PO FR@08,04/24/18 [Last Taken Unknown] clonazePAM [klonoPIN (*)] 1 mg PO MO@,18 04/24/18 [Last Taken Unknown] clonazePAM [klonoPIN (*)] 1 mg PO SUTUWESA@08,,04/24/18 [Last Taken Unknown ] clonazePAM [klonoPIN (*)] 1 mg PO TH@,18 04/24/18 [Last Taken Unknown] clonazePAM [klonoPIN (*)] 2 mg PO FR@18 04/24/18 [Last Taken Unknown] clonazePAM [klonoPIN (*)] 2 mg PO MO@04/24/18 [Last Taken Unknown] clonazePAM [klonoPIN (*)] 2 mg PO TH@04/24/18 [Last Taken Unknown] I have personally reviewed and updated: family history, medical history, social history, surgical history - Past Medical History fibromyalgia, psychiatric history Additional medical history: chronic LBP, scoliosis - Surgical History Additional surgical history: RUL lobectomy - Family History Positive for: non-pertinent - Social History Smoking Status: Never smoked Alcohol Use: Sober Drug Use: None Review of Systems Review of Systems: ROS: 10pt was reviewed & negative except for what was stated in HPI & below Physical Exam Physical Exam: Lab data were reviewed. H/H from 04/18 to 04/24 to 04/25: 12.5/39.4 to 7.6/23.7 to 7.4/23.3 Temp Pulse Resp BP Pulse Ox 36.8 C 62 14 109/59 L 90 L 04/25/18 16:00 04/25/18 16:00 04/25/18 16:00 04/25/18 16:00 04/25/18 16:00 O2 (L/minute) 2 Constitutional: appears nourished, other (Pale appearing, slightly anxious pt) Eyes: PERRL, anicteric sclera, EOMI Ears, Nose, Mouth, Throat: hearing normal, ears appear normal, no oral mucosal ulcers, dry mucous membranes Cardiovascular: regular rate and rhythym, no murmur, rub, or gallop, No edema Peripheral Pulses: 2+: dorsalis-pedis (R) (Radial 2+), dorsalis-pedis (L) ( Radial 2+) Respiratory: no respiratory distress, no rales or rhonchi, clear to auscultation Gastrointestinal: normoactive bowel sounds, soft, non-tender abdomen, no palpable masses Genitourinary: no bladder fullness, no bladder tenderness Skin: warm, normal color, no rashes or abrasions, no fluctuance, no induration, other (L surgical dressing C/D/I), No mottled Musculoskeletal: pain with ROM (LLE) Neurologic: AAOx3, sensation intact bilaterally, CN II-XII Intact Psychiatric: interacting appropriately, not encephalopathic, thought process linear, anxious Lymph, Heme, Immunologic: no cervical LAD, no supraclavicular LAD Lab Data & Imaging Review 04/25/18 05:29 04/25/18 05:29 Hgb 7.4 g/dL (12.6-16.3) L 04/25/18 05:29 Hct 23.3 % (38.0-47.0) L 04/25/18 05:29 Sodium 134 mEq/L (135-145) L 04/25/18 05:29 Potassium 4.3 mEq/L (3.5-5.2) 04/25/18 05:29 Chloride 104 mEq/L (97-110) 04/25/18 05:29 Carbon Dioxide 28 mEq/l (22-31) 04/25/18 05:29 Anion Gap 2 mEq/L (6-14) L 04/25/18 05:29 BUN 10 mg/dL (7-23) 04/25/18 05:29 Creatinine 0.5 mg/dL (0.6-1.0) L 04/25/18 05:29 Estimated GFR > 60 04/25/18 05:29 Glucose 91 mg/dL (70-100) 04/25/18 05:29 Calcium 7.8 mg/dL (8.5-10.4) L 04/25/18 05:29 Patient ABO/Rh A POSITIVE 04/25/18 11:18 Antibody Screen NEGATIVE 04/25/18 11:18 Crossmatch IS Only See Detail 04/25/18 11:18 Assessment & Plan Plan: 62 y/o female s/p POD #3 L JOSE MARIA presents with urinary retention. She has received a straight cath and indwelling catheter, which indwelling has been removed this AM. Plan: #Attempt one more void and PVR. If PVR is > 350 ml, insert indwelling catheter. She will need to f/u outpatient to urology. #Decreased H/H is concerning. She appears pale and hypotensive but denies any other symptoms. Transfuse 2 units RBCs. Check CBC in AM.
[2018-04-25] MEDS ORDERED: oxyCODONE IR 5 MG TAB PO PRN (18:47)
[2018-04-25] MEDS: oxyCODONE IR 5 MG TAB PO PRN (22:11)
[2018-04-26] MEDS: ACETAMINOPHEN 325 MG TAB PO SCH ×3 (02:58→13:56)
[2018-04-26] MEDS: oxyCODONE IR 5 MG TAB PO PRN (06:08)
--- NOTE | 2018-04-26 06:38 | GCON ---
[f rep st] CONSULTATION DATE OF CONSULTATION: 04/25/2018 REFERRING PHYSICIAN: Tino Barlow MD REASON FOR CONSULTATION: Urinary retention. HISTORY OF PRESENT ILLNESS: Briefly, a 62-year-old female with history of chronic low back pain with Dilaudid pain pump, depression, fibromyalgia, who underwent left total hip arthroplasty, 04/23/2018. Since that time, she has had urinary retention. I evaluated and examined patient with Joanna Brannon NP. I reviewed her H&P and agree with assessment and plan, except as noted below. SUBJECTIVE: No chest pain, dizziness, or shortness of breath. No bowel or bladder incontinence. No weakness. PHYSICAL EXAMINATION: VITAL SIGNS: Temperature 36.7, blood pressure 76/38 to 109/59, heart rate in the 50s to 60s, respirations 14, 90% on room air. GENERAL : She is very pale. HEENT: Conjunctival pallor. Mildly dry mucous membranes. CV: Nicko, regular. LUNGS: Clear. No crackles. GI: Soft, nontender, nondistended. Positive bowel sounds. : No suprapubic or CVA tenderness. MUSCULOSKELETAL: Right forearm with mild swelling. NEURO: 2 through 12 intact. Normal sensation to touch. SKIN: Left hip surgical incision clean, dry, intact. PSYCH: Alert and oriented x3. ASSESSMENT AND PLAN: 1. Urinary retention: Suspect related to medications. She is on multiple medications at home, including Cymbalta, Klonopin, and Dilaudid. This was likely exacerbated by Flexeril, morphine, oxycodone, fentanyl, and Dilaudid she received perioperatively. We will check a urinalysis, ultrasound. If still having residual, place Alan catheter. Will discontinue anticholinergic medications, including Benadryl, Reglan, and Restoril. 2. Acute blood loss anemia: Hemoglobin and hematocrit down, 7.4 and 23. Suspect blood loss and dilutional with IV fluids. We will check iron studies. She was initially refusing blood transfusion, but is now consenting to it. 3. Hypotension: Multifactorial with anemia, medications. This is improved with fluids, now 109/59. 4. Chronic sinus pain, and she is on Dilaudid pump 5 mg daily along with as- needed oxycodone 10 to 40 mg. 5. Bowel regimen. 6. Left total hip arthroplasty: Management per Dr. Barlow's team. Thank you for this consultation. Please call if any questions. /[id number]/MODL MTDD
--- NOTE | 2018-04-26 08:56 | SOAPPROG ---
SOAP Progress Note Assessment/Plan: Assessment: s/p L JOSE MARIA POD 2 ortega removed this am urine output better but still having retention planned transfusion which was first refused then accepted from hospitalist low BP plan for SNF Saturday Plan: 04/26/18 08:53 Objective: Vital Signs Temp Pulse Resp BP Pulse Ox 37.0 C 61 16 130/74 H 93 04/26/18 08:00 04/26/18 08:00 04/26/18 08:00 04/26/18 08:00 04/26/18 08:00 Laboratory Results 04/26/18 04:52 04/25/18 05:29 04/25/18 04/26/18 04/27/18 05:59 05:59 05:59 Intake Total 4883 2800 Output Total 1450 2625 Balance 3433 175 Dressing dry, mild swelling ICD10 Worksheet Patient Problems: Problems Problem Status Onset Primary osteoarthritis of right hip Acute Chronic pain Acute Fall in bathtub Acute Fibromyalgia affecting multiple sites Acute Hip arthritis Acute Multiple rib fractures Acute
--- NOTE | 2018-04-26 08:58 | SOAPPROG ---
SOAP Progress Note Assessment/Plan: Assessment: s/p L JOSE MARIA POD3 urine output better, retention resolved H&H better after transfusion low BP improving plan for SNF today Plan: 04/26/18 08:53 04/26/18 08:57 Objective: Vital Signs Temp Pulse Resp BP Pulse Ox 37.0 C 61 16 130/74 H 93 04/26/18 08:00 04/26/18 08:00 04/26/18 08:00 04/26/18 08:00 04/26/18 08:00 Laboratory Results 04/26/18 04:52 04/25/18 05:29 04/25/18 04/26/18 04/27/18 05:59 05:59 05:59 Intake Total 4883 2800 Output Total 1450 2625 Balance 3433 175 ICD10 Worksheet Patient Problems: Problems Problem Status Onset Primary osteoarthritis of right hip Acute Chronic pain Acute Fall in bathtub Acute Fibromyalgia affecting multiple sites Acute Hip arthritis Acute Multiple rib fractures Acute
[2018-04-26] MEDS: GABAPENTIN 300 MG CAP PO SCH ×2 (09:23→16:12)
[2018-04-26] MEDS: ASPIRIN 81 MG CHEWABLE TAB PO SCH (09:23)
[2018-04-26] MEDS: CITALOPRAM 20 MG TAB PO SCH (09:23)
[2018-04-26] MEDS: DULoxetine 60 MG CAP PO SCH (09:23)
[2018-04-26] MEDS: FAMOTIDINE 20 MG TAB PO SCH (09:23)
[2018-04-26] MEDS: clonazePAM 1 MG TAB PO SCH ×2 (09:23→13:57)
[2018-04-26] MEDS: SENNOSIDES/DOCUSATE SODIUM TAB PO SCH (09:27)
[2018-04-26] MEDS: POLYETHYLENE GLYCOL 3350 17 GM PKT PO SCH (09:28)
[2018-04-26] MEDS: OLOPATADINE HCL EACHEYE SCH (09:29)
[2018-04-26 11:57] VITALS: BP 128/50
--- NOTE | 2018-04-26 12:52 | HOSPPROG ---
Hospitalist Progress Note Assessment/Plan: 62y female with c/o urinary issues. First encounter, chart reviewed. #Urinary retention -resolved -ortega removed -likely medication related #Pain -stable #ABLA -responded to transfusion -low iron -start replacement #Left hip arthroplasty -stable -needs rehab #Chronic issues -cont home meds #Dispo -unclear -needs SNF -D/W CM Subjective: Up in the chair. Pain stable. Objective: Vital Signs Temp Pulse Resp BP Pulse Ox 36.6 C 57 L 16 128/50 H 92 04/26/18 11:57 04/26/18 11:57 04/26/18 11:57 04/26/18 11:57 04/26/18 11:57 Laboratory Results 04/26/18 04:52 04/25/18 05:29 04/25/18 04/26/18 04/27/18 05:59 05:59 05:59 Intake Total 4883 2800 Output Total 1450 2625 Balance 3433 175 - Physical Exam Constitutional: not in pain, chronically ill appearing, cachectic Eyes: PERRL, anicteric sclera, EOMI Ears, Nose, Mouth, Throat: moist mucous membranes, hearing normal, ears appear normal Cardiovascular: No JVD, No tachycardia, No edema Respiratory: no respiratory distress, no rales or rhonchi, reduced air movement Gastrointestinal: normoactive bowel sounds, No tenderness, No ascites Skin: warm, other (pale), No mottled Musculoskeletal: joint tenderness, pain with ROM, generalized weakness Neurologic: AAOx3 Psychiatric: not anxious, not encephalopathic, poor memory ICD10 Worksheet Patient Problems: Problems Problem Status Onset Primary osteoarthritis of right hip Acute Hip arthritis Acute Multiple rib fractures Acute Chronic pain Acute Fibromyalgia affecting multiple sites Acute Fall in bathtub Acute
[2018-04-26] MEDS: cycloSPORINE 0.05% 30 DROPERETTE/BOX EACHEYE SCH (13:37)
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
--- NOTE | 2018-04-26 14:20 | PDIAF ---
- Diagnosis Diagnosis: s/p Left JOSE MARIA Code Status: Full Code - Medication Management Discharge Medications: electronically signed and located in the Home Medication List. PICC Care - Routine: N/A - Orders Services needed: Certified Bench Assembler Battery, Physical Therapy, Occupational Therapy Diet Recommendation: no restrictions on diet Diet Texture: Regular Texture Diet Additional Instructions: Joint Protocol-Hip Replacement Follow up with Dr. Villalpando office as scheduled After surgery instructions: Take Aspirin 81mg by mouth twice daily for 4 weeks (helps to prevent blood clots ) Wear thigh high TRINO hose on both legs during the daytime for 2 weeks (helps to prevent blood clots and decrease swelling in the surgical leg). It is ok to remove TRINO hose at night time to give your legs a break. It is common for swelling and bruising to occur in the entire surgical leg even extending to the foot, if concerned call Dr. Martinez office [phone] Weight bearing as tolerated Use a walker for 7-14 days Do exercises in the book 2-3 times a day Ice at least 3-5 times a day for 30 minutes each time, if not more often. ~~If you have further questions that are not addressed here, please look at the information packet handed to you at the preop appointment. ~Most will be answered on the FAQs, after surgery instructions and incision care pages. ~You may also call Dr. Irasema brito with questions as well. *IF YOU HAVE A LIFE THREATENING EMERGENCY, CALL 911. FOR NON-LIFE THREATENING ISSUES, PLEASE CALL DR. IRASEMA BRITO FIRST. A PHYSICIAN IS WELL BLOWER 17/09. Incision/Dressing Care: May shower tomorrow, please do no submerge in water, but you do not have to cover for showers Keep the incision (lord) dressing clean and dry. If the incision dressing gets soiled or wet underneath, change dressing to the dressing given to you by the hospital. (lord dressing will turn black if drainage occurs) Remove incision dressing (lord one) two weeks after surgery. ~Leave steri strips alone. ~They will fall off on their own. Do not have anyone else remove the incision dressing prior to the stated recommendation (2 weeks after surgery). ~If there are incision concerns, contact Dr. Martinez office. ~(Dot or Dr. Barlow may remove earlier if concerns arise) If incision site (lord dressing) has drainage, call Dr. Martinez office, . ~Dot and Dr. Barlow may ask you to come into the office for further evaluation - Follow Up Care Current Providers and Referrals: Sina Verma MD [Primary Care Provider] - Salena Mcdonnell PAC [Physician Truss Driver Helper] - 05/13/18 3:30 pm
--- NOTE | 2018-04-26 14:29 | ASMTLACE ---
MONICAE Length of stay for Answers: 3 days current admission Acuity / Level of Answers: Yes Care: Did the patient have an inpatient admission? Comorbidities - select Answers: Opioid dependence all that apply / Chronic pain # of Emergency department Answers: 1-2 visits in the last 6 months Social determinants Answers: Mental health diagnosis (anxiety, depression, pers onality disorders, etc.) Score: 14 Date Signed: 04/26/2018 02:28 PM Electronically Signed By:Breanna Greene RN
--- NOTE | 2018-04-26 14:34 | ASMTDCNOTE ---
Case Management Discharge Discharge Order Complete? Answers: Yes Patient to Obtain Answers: Other Notes: [facility] Rehab Transportation Arranged Answers: Other Notes: Joya Lambert per [facility] Transport will Pick (Date 04/26/2018 04:30 PM & Time) Faxed Final Orders Answers: Yes Discharge Comments Notes: Stefanie at [facility] confirmed that patient's insurance is active. I notified Josepuma Barlow who discharged patient. I called APS and notified Renee ([phone]) that patient was transferring to [facility]. She said that report has been submitted to APS team and will - per my previous note - be addressed on 04/28/18. I called patient's son again, and he did not answer. Voicemail box is full. Patient is relieved to discharge to [facility]. ERI Mendez to call report. Date Signed: 04/26/2018 02:33 PM Electronically Signed By:Breanna Greene RN
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
== END 2018-04-26 16:35 | DRG 470 ==
LOC: F3E 04-23 10:09 → F3N 04-23 16:22
PROVIDERS: ADMIT Orthopaedic Surgery; ATTEND Orthopaedic Surgery
PROC: 0SRB04Z Replacement of Left Hip Joint with Ceramic on Polyethylene Synthetic Substitute, Open Approach (ICD-10-PCS; principal; 2018-04-23 12:00)
PROC: 30233N1 Transfusion of Nonautologous Red Blood Cells into Peripheral Vein, Percutaneous Approach (ICD-10-PCS; 2018-04-25)
DX: M16.12 Unilateral primary osteoarthritis, left hip (principal); R33.9 Retention of urine, unspecified; D62 Acute posthemorrhagic anemia; K21.9 Gastro-esophageal reflux disease without esophagitis; M81.0 Age-related osteoporosis without current pathological fracture; G89.29 Other chronic pain; F32.9 Major depressive disorder, single episode, unspecified; M79.7 Fibromyalgia
CPT/HCPCS: 97110-GP; 97116-GP; 97161-GP; 97530-GP; J0171; J0330; J1100; J1170; J1885; J2250; J2270; J2370; J2704; J2710; J2765; J2795; J3010; J3360; J3370; P9016